=== PATIENT | male | born 1930 | race Caucasian/White ===

== ENCOUNTER → 2016-10-29 | Outpatient (CLI) | payer OTHER ==
[~2016-10-29] MED LIST: ACET-1311 PO; ACET650S10 RE; ASPEC81 PO; BENZ10LO2 PO; BISA10SU7 RE; BUDE0.5S NEB; CHOL100010 PO; CZR50 PO; ESCI1TAB10 PO; IMDSR60 PO; LOPE2TAB PO; LSX20 PO; MAGNSUS5 PO; PANT40TA PO; POLY335019 PO; POTA10CA28 PO; PSYLPOW6 PO; SILO8CAP PO; SOLI10TA2 PO; ULT50X PO; WARF4TAB PO
[2016-10-29 09:20] LABS: INR 2.9 (0.9-1.1); PROTHROMBIN TIME (PATIENT) 32.1 SECONDS (9.0-12.0)
== END | disposition home or self-care (01) ==
LOC: C.LABFOXAE 08:48
PROVIDERS: ATTEND Internal Medicine
DX: I48.91 Unspecified atrial fibrillation (principal)

== ENCOUNTER → 2016-11-19 | Outpatient (CLI) | payer OTHER ==
[2016-11-19 08:58] LABS: INR 2.3 (0.9-1.1); PROTHROMBIN TIME (PATIENT) 25.7 SECONDS (9.0-12.0)
== END | disposition home or self-care (01) ==
LOC: C.LABFOXAE 08:23
PROVIDERS: ATTEND Internal Medicine
DX: I48.91 Unspecified atrial fibrillation (principal)

== ENCOUNTER → 2016-12-10 | Outpatient (CLI) | payer OTHER, BC ==
[2016-12-10 08:57] LABS: INR 2.9 (0.9-1.1); PROTHROMBIN TIME (PATIENT) 32.8 SECONDS (9.0-12.0)
== END | disposition home or self-care (01) ==
LOC: C.LABFOXAE 08:26
PROVIDERS: ATTEND Internal Medicine
DX: I48.91 Unspecified atrial fibrillation (principal)

== ENCOUNTER → 2016-12-24 | Outpatient (CLI) | payer BC, OTHER ==
[2016-12-24 09:31] LABS: INR 2.6 (0.9-1.1); PROTHROMBIN TIME (PATIENT) 28.8 SECONDS (9.0-12.0)
== END | disposition home or self-care (01) ==
LOC: C.LABFOXAE 09:04
PROVIDERS: ATTEND Nurse Practitioner Family
DX: I48.91 Unspecified atrial fibrillation (principal)

== ENCOUNTER → 2016-12-31 | Outpatient (CLI) | payer BC, OTHER ==
[2016-12-31 08:21] LABS: HEMATOCRIT 32.2 % (42-52); MEAN CELL VOLUME 85.6 fL (80-100); MEAN CORPUSCULAR HEMOGLOBIN 27.1 pg (25-34); MEAN CORPUSCULAR HGB CONC 31.7 g/dl (32-36); MEAN PLATELET VOLUME 9.8 fL (7.4-10.4); PLATELET COUNT 175 K/uL (130-400); RED BLOOD COUNT 3.76 M/uL (4.7-6.1)
[2016-12-31 08:28] LABS: BLOOD UREA NITROGEN 16 mg/dl (7-18); BUN/CREATININE RATIO 16.3 (10-20); CALCIUM 9.1 mg/dl (8.5-10.1); CARBON DIOXIDE 30 mmol/L (21-32); CHLORIDE 96 mmol/L (98-107); GLUCOSE 81 mg/dl (70-99); POTASSIUM 4.6 mmol/L (3.5-5.1); SODIUM 132 mmol/L (136-145)
== END | disposition home or self-care (01) ==
LOC: C.LABFOXAE 07:50
PROVIDERS: ATTEND Nurse Practitioner Family
DX: I50.9 Heart failure, unspecified (principal)

== ENCOUNTER → 2017-01-06 | Outpatient (CLI) | payer BC ==
[2017-01-06 09:32] LABS: INR 2.5 (0.9-1.1)
== END | disposition home or self-care (01) ==
LOC: C.LABFOXAE 08:59
PROVIDERS: ATTEND Internal Medicine
DX: I48.91 Unspecified atrial fibrillation (principal)

== ENCOUNTER → 2017-01-27 | Outpatient (CLI) | payer OTHER ==
[2017-01-27 09:38] LABS: PROTHROMBIN TIME (PATIENT) 21.9 SECONDS (9.0-12.0)
== END | disposition home or self-care (01) ==
LOC: C.LABFOXAC 09:11
PROVIDERS: ATTEND Internal Medicine
DX: I48.91 Unspecified atrial fibrillation (principal)

== ENCOUNTER → 2017-02-10 | Outpatient (CLI) | payer OTHER ==
[2017-02-10 10:15] LABS: INR 1.8 (0.9-1.1); PROTHROMBIN TIME (PATIENT) 19.2 SECONDS (9.0-12.0)
== END | disposition home or self-care (01) ==
LOC: C.LABFOXAE 08:51
PROVIDERS: ATTEND Internal Medicine
DX: I48.91 Unspecified atrial fibrillation (principal)

== ENCOUNTER → 2017-02-17 | Outpatient (CLI) | payer OTHER ==
[2017-02-17 08:24] LABS: HEMATOCRIT 35.6 % (42-52); MEAN CELL VOLUME 85.4 fL (80-100); MEAN CORPUSCULAR HEMOGLOBIN 26.6 pg (25-34); MEAN CORPUSCULAR HGB CONC 31.2 g/dl (32-36); MEAN PLATELET VOLUME 9.7 fL (7.4-10.4); PLATELET COUNT 247 K/uL (130-400); RED BLOOD COUNT 4.17 M/uL (4.7-6.1); WHITE BLOOD COUNT 6.57 K/uL (4.8-10.8)
[2017-02-17 08:31] LABS: INR 2.5 (0.9-1.1); PROTHROMBIN TIME (PATIENT) 28.2 SECONDS (9.0-12.0)
[2017-02-17 09:11] LABS: BLOOD UREA NITROGEN 20 mg/dl (7-18); CALCIUM 8.9 mg/dl (8.5-10.1); CARBON DIOXIDE 34 mmol/L (21-32); CHLORIDE 92 mmol/L (98-107); GLUCOSE 82 mg/dl (70-99); POTASSIUM 4.7 mmol/L (3.5-5.1); SODIUM 129 mmol/L (136-145)
== END | disposition home or self-care (01) ==
LOC: C.LABFOXAE 07:59
PROVIDERS: ATTEND Nurse Practitioner Family
DX: I48.91 Unspecified atrial fibrillation (principal)

== ENCOUNTER → 2017-03-03 | Outpatient (CLI) | payer OTHER ==
[2017-03-03 08:52] LABS: INR 2.7 (0.9-1.1)
== END | disposition home or self-care (01) ==
LOC: C.LABFOXAE 08:16
PROVIDERS: ATTEND Internal Medicine
DX: I48.91 Unspecified atrial fibrillation (principal)

== ENCOUNTER → 2017-03-31 | Outpatient (CLI) | payer OTHER ==
[2017-03-31 10:07] LABS: HEMATOCRIT 32.7 % (42-52); MEAN CELL VOLUME 83.4 fL (80-100); MEAN CORPUSCULAR HEMOGLOBIN 27.3 pg (25-34); MEAN CORPUSCULAR HGB CONC 32.7 g/dl (32-36); MEAN PLATELET VOLUME 9.3 fL (7.4-10.4); PLATELET COUNT 178 K/uL (130-400); RED BLOOD COUNT 3.92 M/uL (4.7-6.1); WHITE BLOOD COUNT 4.93 K/uL (4.8-10.8)
[2017-03-31 10:16] LABS: BLOOD UREA NITROGEN 28 mg/dl (7-18); BUN/CREATININE RATIO 18.9 (10-20); CARBON DIOXIDE 27 mmol/L (21-32); CHLORIDE 87 mmol/L (98-107); GLUCOSE 82 mg/dl (70-99); SODIUM 123 mmol/L (136-145)
[2017-03-31 10:27] LABS: CALCIUM 8.7 mg/dl (8.5-10.1)
[2017-03-31 10:34] LABS: PROTHROMBIN TIME (PATIENT) 62.9 SECONDS (9.0-12.0)
[2017-03-31 10:43] LABS: INR 5.5 (0.9-1.1)
== END ==
LOC: C.LABFOXAE 09:00
PROVIDERS: ATTEND Internal Medicine
DX: I48.91 Unspecified atrial fibrillation (principal); I50.9 Heart failure, unspecified

== ENCOUNTER → 2017-04-02 | Outpatient (CLI) | payer OTHER ==
[2017-04-02 10:35] LABS: INR 3.5 (0.9-1.1); PROTHROMBIN TIME (PATIENT) 38.9 SECONDS (9.0-12.0)
== END | disposition home or self-care (01) ==
LOC: C.LABFOXAE 08:58
PROVIDERS: ATTEND Internal Medicine
DX: I48.91 Unspecified atrial fibrillation (principal)

== ENCOUNTER → 2017-04-07 | Outpatient (CLI) | payer OTHER ==
[2017-04-07 10:00] LABS: INR 1.7 (0.9-1.1); PROTHROMBIN TIME (PATIENT) 19.1 SECONDS (9.0-12.0)
== END ==
LOC: C.LABFOXAE 09:04
PROVIDERS: ATTEND Internal Medicine
DX: I48.91 Unspecified atrial fibrillation (principal)

== ENCOUNTER → 2017-04-14 | Outpatient (CLI) | payer OTHER ==
[2017-04-14 10:54] LABS: INR 2.2 (0.9-1.1); PROTHROMBIN TIME (PATIENT) 24.8 SECONDS (9.0-12.0)
== END | disposition home or self-care (01) ==
LOC: C.LABFOXAE 09:28
PROVIDERS: ATTEND Internal Medicine
DX: I48.91 Unspecified atrial fibrillation (principal)

== ENCOUNTER → 2017-04-21 | Outpatient (CLI) | payer OTHER ==
[2017-04-21 09:32] LABS: PROTHROMBIN TIME (PATIENT) 22.1 SECONDS (9.0-12.0)
== END | disposition home or self-care (01) ==
LOC: C.LABFOXAE 05:23
PROVIDERS: ATTEND Internal Medicine
DX: I48.91 Unspecified atrial fibrillation (principal)

== ENCOUNTER → 2017-05-05 | Outpatient (CLI) | payer OTHER ==
[2017-05-05 09:05] LABS: INR 1.5 (0.9-1.1)
== END ==
LOC: C.LABFOXAE 08:23
PROVIDERS: ATTEND Nurse Practitioner Family
DX: I48.91 Unspecified atrial fibrillation (principal)

== ENCOUNTER → 2017-05-06 | Outpatient (CLI) | payer OTHER ==
[2017-05-06 10:22] LABS: BLOOD UREA NITROGEN 21 mg/dl (7-18); BUN/CREATININE RATIO 19.5 (10-20); CALCIUM 9.5 mg/dl (8.5-10.1); CARBON DIOXIDE 29 mmol/L (21-32); CHLORIDE 90 mmol/L (98-107); GLUCOSE 75 mg/dl (70-99); POTASSIUM 5.1 mmol/L (3.5-5.1); SODIUM 127 mmol/L (136-145)
== END | disposition home or self-care (01) ==
LOC: C.LABFOXAE 09:32
PROVIDERS: ATTEND Internal Medicine
DX: Z51.81 Encounter for therapeutic drug level monitoring (principal); Z79.01 Long term (current) use of anticoagulants

== ENCOUNTER → 2017-05-12 | Outpatient (CLI) | payer OTHER, BC ==
[2017-05-12 09:52] LABS: INR 1.8 (0.9-1.1); PROTHROMBIN TIME (PATIENT) 19.3 SECONDS (9.0-12.0)
== END ==
LOC: C.LABFOXAE 08:54
PROVIDERS: ATTEND Internal Medicine Hospice and Palliative Medicine
DX: I48.91 Unspecified atrial fibrillation (principal)

== ENCOUNTER → 2017-05-13 | Outpatient (CLI) | payer OTHER, BC ==
[2017-05-13 09:28] LABS: BLOOD UREA NITROGEN 19 mg/dl (7-18); BUN/CREATININE RATIO 16.9 (10-20); CALCIUM 9.1 mg/dl (8.5-10.1); CARBON DIOXIDE 28 mmol/L (21-32); CHLORIDE 91 mmol/L (98-107); GLUCOSE 99 mg/dl (70-99); POTASSIUM 4.8 mmol/L (3.5-5.1); SODIUM 126 mmol/L (136-145)
== END | disposition home or self-care (01) ==
LOC: C.LABFOXAE 08:43
PROVIDERS: ATTEND Internal Medicine Hospice and Palliative Medicine
DX: E87.1 Hypo-osmolality and hyponatremia (principal)

== ENCOUNTER → 2017-05-14 | Outpatient (CLI) | payer OTHER, BC ==
--- NOTE | 2017-05-14 18:10 | ECHOCARDIOGRAM REPORT ---
*NOTICE TO RECEIVING DEMOCRAT AGENCY This information is strictly Confidential and protected under [place] law. [place] law prohibits you from making any further disclosure of this information unless further disclosure is expressly permitted by the written consent of the person to whom it pertains or is authorized by law. A general authorization for the release of medical or other information is not sufficient for this purpose. Hospital accepts no responsibility if the information is made available to any other person, INCLUDING THE PATIENT. Interpretation Summary * Name: OK HAN Study Date: 05/14/2017 02:41 PM * Patient Location: [facility] HR: 76 * : 1930 (M/d/yyyy) Gender: Male Height: 66 in * Age: 86 yrs Ethnicity: CA Weight: 141 lb * Ordering Physician: Alex Anguiano * Referring Physician: Alex Anguiano * Performed By: Aleta Hills RCS * * Reason For Study: CHF * BSA: 1.7 m2 * -- Conclusions -- * There is mild concentric left ventricular hypertrophy. * Left ventricular systolic function is normal. * The right ventricle is mildly dilated. * The right ventricular systolic function is moderately reduced. * The left atrium is severely dilated. * The right atrium is moderately dilated. * Mild aortic regurgitation. * Mild valvular aortic stenosis. * There is mild mitral regurgitation. * There is mild tricuspid regurgitation. * Right ventricular systolic pressure is elevated at 50-60mmHg. * Compared to a study from 08/2016, the LV systolic function is improved. Aortic stenosis is slightly worse. * Rhythm is now atrial fibrillation Procedure Details * A complete two-dimensional transthoracic echocardiogram was performed (2D, M-mode, Doppler and color flow Doppler). Left Ventricle * The left ventricle is normal in size. * There is mild concentric left ventricular hypertrophy. * Left ventricular systolic function is normal. Right Ventricle * The right ventricle is mildly dilated. * The right ventricular systolic function is moderately reduced. Atria * The left atrium is severely dilated. * The right atrium is moderately dilated. Mitral Valve * The mitral valve is grossly normal. * There is mild mitral regurgitation. Tricuspid Valve * The tricuspid valve is not well visualized, but is grossly normal. * There is mild tricuspid regurgitation. * Right ventricular systolic pressure is elevated at 50-60mmHg. Aortic Valve * The aortic valve is trileaflet. * Mild valvular aortic stenosis. * Mild aortic regurgitation. Great Vessels * The aortic root is normal size. Pericardium/Pleural * There is no pericardial effusion. MMode 2D Measurements and Calculations IVSd 1.3 cm IVSs 1.5 cm LVIDd 4.0 cm LVIDs 3.1 cm LVPWd 1.2 cm LVPWs 1.4 cm IVS/LVPW 1.0 FS 22.5 % EDV(Teich) 69.0 ml ESV(Teich) 37.3 ml EF(Teich) 45.9 % EDV(cubed) 62.8 ml ESV(cubed) 29.2 ml EF(cubed) 53.5 % % IVS thick 13.6 % % LVPW thick 8.7 % LV mass(C)d 178.7 grams LV mass(C)dI 103.6 grams/m\S\2 LV mass(C)s 147.7 grams LV mass(C)sI 85.7 grams/m\S\2 SV(Teich) 31.7 ml SI(Teich) 18.4 ml/m\S\2 SV(cubed) 33.6 ml SI(cubed) 19.5 ml/m\S\2 Ao root diam 2.9 cm Ao root area 6.7 cm\S\2 ACS 1.4 cm LA dimension 5.3 cm LA/Ao 1.8 LVOT diam 2.0 cm LVOT area 3.1 cm\S\2 LVAd ap4 26.8 cm\S\2 LVLd ap4 7.8 cm EDV(MOD-sp4) 75.8 ml EDV(sp4-el) 77.7 ml LVAs ap4 14.8 cm\S\2 LVLs ap4 6.6 cm ESV(MOD-sp4) 27.9 ml ESV(sp4-el) 28.0 ml EF(MOD-sp4) 63.2 % EF(sp4-el) 63.9 % SV(MOD-sp4) 48.0 ml SI(MOD-sp4) 27.8 ml/m\S\2 SV(sp4-el) 49.6 ml SI(sp4-el) 28.8 ml/m\S\2 Doppler Measurements and Calculations MV E max fausto 87.2 cm/sec MV P1/2t max fausto 105.9 cm/sec MV P1/2t 89.5 msec MVA(P1/2t) 2.5 cm\S\2 MV dec slope 346.7 cm/sec\S\2 MV dec time 0.24 sec Ao V2 max 251.9 cm/sec Ao max PG 25.4 mmHg Ao max PG (full) 22.8 mmHg SUZIE(V,A) 0.99 cm\S\2 SUZIE(V,D) 0.99 cm\S\2 AI max fausto 375.5 cm/sec AI max PG 56.4 mmHg AI dec slope 155.2 cm/sec\S\2 AI P1/2t 708.8 msec LV V1 max PG 2.6 mmHg LV V1 max 80.7 cm/sec PA V2 max 135.4 cm/sec PA max PG 7.3 mmHg PI max fausto 190.7 cm/sec PI max PG 14.5 mmHg PI dec slope 72.1 cm/sec\S\2 PI P1/2t 774.1 msec TR max fausto 337.2 cm/sec
== END | disposition home or self-care (01) ==
LOC: C.CPL 14:11
PROVIDERS: ATTEND Internal Medicine
DX: I50.9 Heart failure, unspecified (principal); I36.1 Nonrheumatic tricuspid (valve) insufficiency; I34.0 Nonrheumatic mitral (valve) insufficiency

== ENCOUNTER → 2017-05-19 | Outpatient (CLI) | payer BC ==
[2017-05-19 08:31] LABS: HEMATOCRIT 31.6 % (42-52); MEAN CELL VOLUME 84.9 fL (80-100); MEAN CORPUSCULAR HGB CONC 34.2 g/dl (32-36); MEAN PLATELET VOLUME 9.4 fL (7.4-10.4); PLATELET COUNT 183 K/uL (130-400); RED BLOOD COUNT 3.72 M/uL (4.7-6.1); WHITE BLOOD COUNT 6.83 K/uL (4.8-10.8)
[2017-05-19 08:40] LABS: ALT/SGPT 18 U/L (12-78); AMYLASE 75 U/L (25-115); BLOOD UREA NITROGEN 20 mg/dl (7-18); CALCIUM 9.1 mg/dl (8.5-10.1); CARBON DIOXIDE 27 mmol/L (21-32); CHLORIDE 87 mmol/L (98-107); GLUCOSE 111 mg/dl (70-99); SODIUM 122 mmol/L (136-145)
[2017-05-19 08:43] LABS: ALB/GLOB RATIO 1.1 (0.9-2); ALKALINE PHOSPHATASE 67 U/L (45-117); AST/SGOT 15 U/L (15-37)
[2017-05-19 08:46] LABS: PROTHROMBIN TIME (PATIENT) 47.3 SECONDS (9.0-12.0)
[2017-05-19 08:48] LABS: INR 4.2 (0.9-1.1)
== END ==
LOC: C.LABFOXAE 08:11
PROVIDERS: ATTEND Internal Medicine Hospice and Palliative Medicine
DX: E87.1 Hypo-osmolality and hyponatremia (principal)

== ENCOUNTER → 2017-05-21 | Outpatient (CLI) | payer BC ==
[2017-05-21 08:39] LABS: BLOOD UREA NITROGEN 24 mg/dl (7-18); BUN/CREATININE RATIO 19.8 (10-20); CALCIUM 8.6 mg/dl (8.5-10.1); CARBON DIOXIDE 28 mmol/L (21-32); CHLORIDE 96 mmol/L (98-107); GLUCOSE 101 mg/dl (70-99); POTASSIUM 4.6 mmol/L (3.5-5.1); SODIUM 131 mmol/L (136-145)
== END | disposition home or self-care (01) ==
LOC: C.LABSPEC 07:34
PROVIDERS: ATTEND Internal Medicine
DX: E87.1 Hypo-osmolality and hyponatremia (principal)

== ENCOUNTER → 2017-05-24 | Outpatient (CLI) | payer BC ==
[2017-05-24 08:35] LABS: PROTHROMBIN TIME (PATIENT) 10.8 SECONDS (9.0-12.0)
== END | disposition home or self-care (01) ==
LOC: C.LABFOXAE 08:03
PROVIDERS: ATTEND Nurse Practitioner Family
DX: I48.91 Unspecified atrial fibrillation (principal)

== ENCOUNTER → 2017-05-27 | Outpatient (CLI) | payer BC ==
[2017-05-27 09:41] LABS: BLOOD UREA NITROGEN 18 mg/dl (7-18); BUN/CREATININE RATIO 16.5 (10-20); CALCIUM 8.9 mg/dl (8.5-10.1); CARBON DIOXIDE 30 mmol/L (21-32); CHLORIDE 93 mmol/L (98-107); GLUCOSE 80 mg/dl (70-99); SODIUM 129 mmol/L (136-145)
[2017-05-27 09:50] LABS: INR 1.1 (0.9-1.1); PROTHROMBIN TIME (PATIENT) 11.9 SECONDS (9.0-12.0)
== END ==
LOC: C.LABFOXAE 09:02
PROVIDERS: ATTEND Internal Medicine
DX: I48.91 Unspecified atrial fibrillation (principal); I50.32 Chronic diastolic (congestive) heart failure

== ENCOUNTER → 2017-05-31 | Outpatient (CLI) | payer BC ==
[2017-05-31 08:50] LABS: BLOOD UREA NITROGEN 29 mg/dl (7-18); BUN/CREATININE RATIO 23.9 (10-20); CARBON DIOXIDE 32 mmol/L (21-32); CHLORIDE 92 mmol/L (98-107); GLUCOSE 112 mg/dl (70-99); POTASSIUM 5.3 mmol/L (3.5-5.1); SODIUM 127 mmol/L (136-145)
== END | disposition home or self-care (01) ==
LOC: C.LABFOXAE 08:07
PROVIDERS: ATTEND Internal Medicine
DX: I50.32 Chronic diastolic (congestive) heart failure (principal); E87.1 Hypo-osmolality and hyponatremia

== ENCOUNTER → 2017-06-03 | Outpatient (CLI) | payer BC ==
[2017-06-03 09:51] LABS: PROTHROMBIN TIME (PATIENT) 22.1 SECONDS (9.0-12.0)
== END | disposition home or self-care (01) ==
LOC: C.LABFOXAE 09:04
PROVIDERS: ATTEND Internal Medicine
DX: I48.0 Paroxysmal atrial fibrillation (principal)

== ENCOUNTER → 2017-06-09 | Outpatient (CLI) | payer BC ==
[2017-06-09 11:02] LABS: BLOOD UREA NITROGEN 23 mg/dl (7-18); GLUCOSE 67 mg/dl (70-99)
[2017-06-09 11:03] LABS: BUN/CREATININE RATIO 18.9 (10-20); CARBON DIOXIDE 29 mmol/L (21-32); CHLORIDE 93 mmol/L (98-107); SODIUM 127 mmol/L (136-145)
== END | disposition home or self-care (01) ==
LOC: C.LABFOXAE 10:15
PROVIDERS: ATTEND Nurse Practitioner Family
DX: E87.1 Hypo-osmolality and hyponatremia (principal)

== ENCOUNTER → 2017-06-17 | Outpatient (CLI) | payer BC ==
[2017-06-17 08:44] LABS: PROTHROMBIN TIME (PATIENT) 22.5 SECONDS (9.0-12.0)
== END | disposition home or self-care (01) ==
LOC: C.LABFOXAE 08:15
PROVIDERS: ATTEND Internal Medicine
DX: I48.91 Unspecified atrial fibrillation (principal)

== ENCOUNTER → 2017-06-29 | Outpatient (CLI) | payer BC ==
[2017-06-29 08:22] LABS: BLOOD UREA NITROGEN 30 mg/dl (7-18); BUN/CREATININE RATIO 20.3 (10-20); CALCIUM 9.2 mg/dl (8.5-10.1); CARBON DIOXIDE 29 mmol/L (21-32); CHLORIDE 89 mmol/L (98-107); GLUCOSE 82 mg/dl (70-99); POTASSIUM 4.8 mmol/L (3.5-5.1); SODIUM 125 mmol/L (136-145); URIC ACID 6.1 mg/dl (2.6-7.2)
--- NOTE | 2017-07-07 09:54 | CODING QUERY NO DIAGNOSIS ---
: 1930 TREATMENT RENDERED WITHOUT A DIAGNOSIS To promote full compliance with coding requirements relating to patient care, physician participation is requested in all cases of master esthetician uncertainty. Please assist us with providing a diagnosis/symptom for the test(s) below: Please provide the original, signed physician order for the following tests that were rendered on 06/29/17: PARTIAL RENAL PROFILE URIC ACID ERYTHROCYTE SEDIMENTATION RATE Thank you [employer] Information Management Once completed, please kindly fax back to [phone] For questions please call [phone]
== END | disposition home or self-care (01) ==
LOC: C.LABFOXAE 07:52
PROVIDERS: ATTEND Internal Medicine
DX: M79.675 Pain in left toe(s) (principal); R06.02 Shortness of breath; E87.1 Hypo-osmolality and hyponatremia

== ENCOUNTER → 2017-07-01 | Outpatient (CLI) | payer BC ==
[2017-07-01 09:02] LABS: HEMATOCRIT 31.3 % (42-52); MEAN CELL VOLUME 90.2 fL (80-100); MEAN CORPUSCULAR HEMOGLOBIN 30.5 pg (25-34); MEAN CORPUSCULAR HGB CONC 33.9 g/dl (32-36); PLATELET COUNT 173 K/uL (130-400); RED BLOOD COUNT 3.47 M/uL (4.7-6.1); WHITE BLOOD COUNT 5.87 K/uL (4.8-10.8)
== END | disposition home or self-care (01) ==
LOC: C.LABFOXAN 08:29
PROVIDERS: ATTEND Internal Medicine
DX: I50.9 Heart failure, unspecified (principal)

== ENCOUNTER → 2017-07-06 | Outpatient (CLI) | payer BC ==
[2017-07-06 10:04] LABS: BLOOD UREA NITROGEN 35 mg/dl (7-18); BUN/CREATININE RATIO 25.3 (10-20); CARBON DIOXIDE 29 mmol/L (21-32); CHLORIDE 93 mmol/L (98-107); GLUCOSE 100 mg/dl (70-99); SODIUM 127 mmol/L (136-145)
== END ==
LOC: C.LABFOXAE 09:23
PROVIDERS: ATTEND Internal Medicine Hospice and Palliative Medicine
DX: I50.32 Chronic diastolic (congestive) heart failure (principal); E87.1 Hypo-osmolality and hyponatremia

== ENCOUNTER → 2017-07-15 | Outpatient (CLI) | payer BC ==
[2017-07-15 08:38] LABS: PROTHROMBIN TIME (PATIENT) 22.4 SECONDS (9.0-12.0)
== END | disposition home or self-care (01) ==
LOC: C.LABFOXAE 07:52
PROVIDERS: ATTEND Internal Medicine
DX: I48.91 Unspecified atrial fibrillation (principal)

== ENCOUNTER → 2017-08-12 | Outpatient (CLI) | payer BC ==
[2017-08-12 08:44] LABS: INR 1.6 (0.9-1.1); PROTHROMBIN TIME (PATIENT) 17.7 SECONDS (9.0-12.0)
== END | disposition home or self-care (01) ==
LOC: C.LABFOXAE 08:05
PROVIDERS: ATTEND Internal Medicine
DX: I48.91 Unspecified atrial fibrillation (principal)

== ENCOUNTER → 2017-08-26 | Outpatient (CLI) | payer BC | END | disposition home or self-care (01) | LOC: C.LABFOXAE 08:36 | PROVIDERS: ATTEND Internal Medicine | DX: I48.91 Unspecified atrial fibrillation (principal) ==

== ENCOUNTER → 2017-08-27 | Outpatient (CLI) | payer BC ==
[2017-08-27 09:10] LABS: INR 3.1 (0.9-1.1); PROTHROMBIN TIME (PATIENT) 34.3 SECONDS (9.0-12.0)
== END | disposition home or self-care (01) ==
LOC: C.LABFOXAE 08:43
PROVIDERS: ATTEND Internal Medicine
DX: I48.91 Unspecified atrial fibrillation (principal)

== ENCOUNTER → 2017-09-08 | Outpatient (CLI) | payer BC ==
[2017-09-08 09:40] LABS: INR 3.4 (0.9-1.1); PROTHROMBIN TIME (PATIENT) 38.8 SECONDS (9.0-12.0)
== END | disposition home or self-care (01) ==
LOC: C.LABFOXAE 08:56
PROVIDERS: ATTEND Internal Medicine Hospice and Palliative Medicine
DX: I48.91 Unspecified atrial fibrillation (principal)

== ENCOUNTER → 2017-09-22 | Outpatient (CLI) | payer BC ==
[2017-09-22 08:50] LABS: INR 1.4 (0.9-1.1); PROTHROMBIN TIME (PATIENT) 14.7 SECONDS (9.0-12.0)
== END ==
LOC: C.LABFOXAE 07:44
PROVIDERS: ATTEND Internal Medicine
DX: I48.91 Unspecified atrial fibrillation (principal)

== ENCOUNTER → 2017-09-24 | Outpatient (CLI) | payer BC ==
[2017-09-24 09:50] LABS: INR 1.9 (0.9-1.1); PROTHROMBIN TIME (PATIENT) 20.1 SECONDS (9.0-12.0)
== END | disposition home or self-care (01) ==
LOC: C.LABFOXAE 09:16
PROVIDERS: ATTEND Nurse Practitioner
DX: I48.91 Unspecified atrial fibrillation (principal)

== ENCOUNTER → 2017-09-27 | Outpatient (CLI) | payer BC ==
[2017-09-27 09:39] LABS: INR 2.7 (0.9-1.1); PROTHROMBIN TIME (PATIENT) 28.1 SECONDS (9.0-12.0)
== END | disposition home or self-care (01) ==
LOC: C.LABFOXAE 08:35
PROVIDERS: ATTEND Nurse Practitioner Family
DX: I48.91 Unspecified atrial fibrillation (principal)

== ENCOUNTER → 2017-10-08 | Outpatient (CLI) | payer BC ==
[2017-10-08 08:58] LABS: HEMATOCRIT 26.2 % (42-52); MEAN CELL VOLUME 91.6 fL (80-100); MEAN CORPUSCULAR HEMOGLOBIN 30.8 pg (25-34); MEAN CORPUSCULAR HGB CONC 33.6 g/dl (32-36); MEAN PLATELET VOLUME 9.7 fL (7.4-10.4); PLATELET COUNT 172 K/uL (130-400); RED BLOOD COUNT 2.86 M/uL (4.7-6.1); WHITE BLOOD COUNT 5.18 K/uL (4.8-10.8)
[2017-10-08 09:04] LABS: BLOOD UREA NITROGEN 29 mg/dl (7-18); BUN/CREATININE RATIO 20.4 (10-20); CALCIUM 8.6 mg/dl (8.5-10.1); CARBON DIOXIDE 27 mmol/L (21-32); CHLORIDE 94 mmol/L (98-107); CREATININE 1.44 mg/dl (0.60-1.40); GLUCOSE 110 mg/dl (70-99); POTASSIUM 5.1 mmol/L (3.5-5.1); SODIUM 128 mmol/L (136-145)
[2017-10-08 09:05] LABS: INR 3.3 (0.9-1.1); PROTHROMBIN TIME (PATIENT) 34.2 SECONDS (9.0-12.0)
== END | disposition home or self-care (01) ==
LOC: C.LABFOXAE 08:27
PROVIDERS: ATTEND Internal Medicine Hospice and Palliative Medicine
DX: I48.91 Unspecified atrial fibrillation (principal)

== ENCOUNTER → 2017-10-12 | Outpatient (CLI) | payer BC ==
[2017-10-12 08:57] LABS: INR 1.5 (0.9-1.1); PROTHROMBIN TIME (PATIENT) 15.9 SECONDS (9.0-12.0)
== END ==
LOC: C.LABFOXAE 08:19
PROVIDERS: ATTEND Internal Medicine
DX: I48.91 Unspecified atrial fibrillation (principal)

== ENCOUNTER → 2017-10-15 | Outpatient (CLI) | payer OTHER, BC ==
[~2017-10-15] MED LIST changes: -ASPEC81 PO; +ASPI-320 PO
[2017-10-15 08:29] LABS: HEMATOCRIT 30.8 % (42-52); HEMOGLOBIN 9.9 g/dL (14.0-18.0); MEAN CELL VOLUME 94.5 fL (80-100); MEAN CORPUSCULAR HEMOGLOBIN 30.4 pg (25-34); MEAN CORPUSCULAR HGB CONC 32.1 g/dl (32-36); MEAN PLATELET VOLUME 9.8 fL (7.4-10.4); PLATELET COUNT 182 K/uL (130-400); RED CELL DISTRIBUTION WIDTH CV 13.5 % (11.5-14.5); RED CELL DISTRIBUTION WIDTH SD 46.8 fL (36.4-46.3); WHITE BLOOD COUNT 6.21 K/uL (4.8-10.8)
== END ==
LOC: C.LABFOXAE 08:09
PROVIDERS: ATTEND Internal Medicine Hospice and Palliative Medicine
DX: D64.9 Anemia, unspecified (principal)

== ENCOUNTER → 2017-10-26 | Outpatient (CLI) | payer BC ==
[~2017-10-26] MED LIST changes: +ASPEC81 PO; -ASPI-320 PO
[2017-10-26 10:12] LABS: INR 1.9 (0.9-1.1)
== END | disposition home or self-care (01) ==
LOC: C.LABFOXAE 09:16
PROVIDERS: ATTEND Internal Medicine Hospice and Palliative Medicine
DX: I48.91 Unspecified atrial fibrillation (principal)

== ENCOUNTER → 2017-11-05 | Outpatient (CLI) | payer BC ==
[2017-11-05 08:50] LABS: HEMATOCRIT 29.2 % (42-52); HEMOGLOBIN 9.8 g/dL (14.0-18.0); MEAN CELL VOLUME 92.7 fL (80-100); MEAN CORPUSCULAR HEMOGLOBIN 31.1 pg (25-34); MEAN CORPUSCULAR HGB CONC 33.6 g/dl (32-36); MEAN PLATELET VOLUME 9.8 fL (7.4-10.4); PLATELET COUNT 198 K/uL (130-400); RED BLOOD COUNT 3.15 M/uL (4.7-6.1); RED CELL DISTRIBUTION WIDTH CV 13.4 % (11.5-14.5); RED CELL DISTRIBUTION WIDTH SD 45.1 fL (36.4-46.3)
== END ==
LOC: C.LABFOXAE 08:13
DX: I48.91 Unspecified atrial fibrillation (principal)

== ENCOUNTER → 2017-11-16 | Outpatient (CLI) | payer BC ==
[2017-11-16 10:53] LABS: INR 2.1 (0.9-1.1)
== END | disposition home or self-care (01) ==
LOC: C.LABFOXAE 09:35
PROVIDERS: ATTEND Internal Medicine
DX: I48.91 Unspecified atrial fibrillation (principal)

== ENCOUNTER → 2017-12-07 | Outpatient (CLI) | payer BC ==
[2017-12-07 09:06] LABS: INR 1.7 (0.9-1.1)
== END | disposition home or self-care (01) ==
LOC: C.LABFOXAE 08:42
PROVIDERS: ATTEND Internal Medicine
DX: I48.91 Unspecified atrial fibrillation (principal)

== ENCOUNTER → 2017-12-21 | Outpatient (CLI) | payer BC ==
[2017-12-21 08:58] LABS: INR 2.4 (0.9-1.1)
== END | disposition home or self-care (01) ==
LOC: C.LABFOXAE 08:29
PROVIDERS: ATTEND Internal Medicine Hospice and Palliative Medicine
DX: I48.91 Unspecified atrial fibrillation (principal)

== ENCOUNTER → 2018-01-04 | Outpatient (CLI) | payer BC ==
[2018-01-04 08:07] LABS: HEMATOCRIT 30.1 % (42-52); HEMOGLOBIN 10.1 g/dL (14.0-18.0); MEAN CELL VOLUME 89.1 fL (80-100); MEAN CORPUSCULAR HEMOGLOBIN 29.9 pg (25-34); MEAN CORPUSCULAR HGB CONC 33.6 g/dl (32-36); MEAN PLATELET VOLUME 10.3 fL (7.4-10.4); PLATELET COUNT 173 K/uL (130-400); RED CELL DISTRIBUTION WIDTH CV 13.2 % (11.5-14.5); RED CELL DISTRIBUTION WIDTH SD 43.2 fL (36.4-46.3); WHITE BLOOD COUNT 6.97 K/uL (4.8-10.8)
[2018-01-04 08:17] LABS: BLOOD UREA NITROGEN 54 mg/dl (7-18); CALCIUM 8.7 mg/dl (8.5-10.1); CARBON DIOXIDE 24 mmol/L (21-32); CREATININE 2.45 mg/dl (0.60-1.40); GLUCOSE 110 mg/dl (70-99); POTASSIUM 5.1 mmol/L (3.5-5.1); SODIUM 124 mmol/L (136-145)
[2018-01-04 08:26] LABS: INR 4.8 (0.9-1.1)
--- NOTE | 2018-01-06 11:15 | CODING QUERY NO DIAGNOSIS ---
TREATMENT RENDERED WITHOUT A DIAGNOSIS To promote full compliance with coding requirements relating to patient care, physician participation is requested in all cases of forging press lever tender uncertainty. Please assist us with providing a diagnosis/symptom for the test(s) below: A diagnosis/symptom was not documented on your Order. A valid diagnosis/symptom is required to bill all insurances. Please remember that we are unable to code a diagnosis of rule out, probable, possible, questionable, or suspected. Tests that require a diagnosis: DOS: 01/04/18 * PT/INR DIAGNOSIS: Provider Signature: Date: Thank you Malaika Reyes [employer] Information [employer] Once completed, please kindly fax back to [phone] For questions please call [phone]
== END ==
LOC: C.LABFOXAE 07:38
PROVIDERS: ATTEND Nurse Practitioner Family
DX: I50.9 Heart failure, unspecified (principal); Z79.01 Long term (current) use of anticoagulants

== ENCOUNTER → 2018-01-06 | Outpatient (CLI) | payer BC ==
[2018-01-06 09:51] LABS: INR 2.5 (0.9-1.1)
[2018-01-06 10:01] LABS: BLOOD UREA NITROGEN 46 mg/dl (7-18); CALCIUM 8.5 mg/dl (8.5-10.1); CARBON DIOXIDE 25 mmol/L (21-32); CREATININE 1.89 mg/dl (0.60-1.40); GLUCOSE 107 mg/dl (70-99); POTASSIUM 4.2 mmol/L (3.5-5.1); SODIUM 127 mmol/L (136-145)
== END ==
LOC: C.LABFOXAE 08:48
PROVIDERS: ATTEND Internal Medicine Hospice and Palliative Medicine
DX: N17.9 Acute kidney failure, unspecified (principal); I48.91 Unspecified atrial fibrillation

== ENCOUNTER → 2018-01-10 | Outpatient (CLI) | payer BC ==
[2018-01-10 09:38] LABS: HEMATOCRIT 28.4 % (42-52); HEMOGLOBIN 9.3 g/dL (14.0-18.0); MEAN CELL VOLUME 92.8 fL (80-100); MEAN CORPUSCULAR HEMOGLOBIN 30.4 pg (25-34); MEAN CORPUSCULAR HGB CONC 32.7 g/dl (32-36); MEAN PLATELET VOLUME 9.7 fL (7.4-10.4); PLATELET COUNT 184 K/uL (130-400); RED CELL DISTRIBUTION WIDTH CV 13.8 % (11.5-14.5); RED CELL DISTRIBUTION WIDTH SD 46.4 fL (36.4-46.3); WHITE BLOOD COUNT 5.95 K/uL (4.8-10.8)
[2018-01-10 09:43] LABS: INR 1.6 (0.9-1.1)
== END | disposition home or self-care (01) ==
LOC: C.LABFOXAE 09:01
PROVIDERS: ATTEND Nurse Practitioner Family
DX: I48.91 Unspecified atrial fibrillation (principal)

== ENCOUNTER → 2018-01-13 | Outpatient (CLI) | payer BC ==
[2018-01-13 09:56] LABS: INR 1.6 (0.9-1.1)
== END ==
LOC: C.LABFOXAE 08:59
PROVIDERS: ATTEND Internal Medicine
DX: I48.91 Unspecified atrial fibrillation (principal)

== ENCOUNTER → 2018-01-20 | Outpatient (CLI) | payer BC ==
[2018-01-20 09:34] LABS: INR 2.5 (0.9-1.1)
== END | disposition home or self-care (01) ==
LOC: C.LABFOXMH 08:17
PROVIDERS: ATTEND Internal Medicine
DX: Z79.01 Long term (current) use of anticoagulants (principal)

== ENCOUNTER → 2018-01-21 | Outpatient (CLI) | payer BC ==
[2018-01-21 09:20] LABS: BLOOD UREA NITROGEN 19 mg/dl (7-18); CALCIUM 8.8 mg/dl (8.5-10.1); CARBON DIOXIDE 30 mmol/L (21-32); CREATININE 1.27 mg/dl (0.60-1.40); GLUCOSE 110 mg/dl (70-99); POTASSIUM 4.5 mmol/L (3.5-5.1); SODIUM 133 mmol/L (136-145)
== END | disposition home or self-care (01) ==
LOC: C.LABFOXAE 07:33
PROVIDERS: ATTEND Internal Medicine
DX: I10 Essential (primary) hypertension (principal)

== ENCOUNTER → 2018-01-27 | Outpatient (CLI) | payer BC, OTHER ==
[~2018-01-27] MED LIST changes: -ASPEC81 PO; +ASPI-320 PO
== END | disposition home or self-care (01) ==
LOC: C.LABFOXAE 09:08
PROVIDERS: ATTEND Internal Medicine Hospice and Palliative Medicine
DX: I48.91 Unspecified atrial fibrillation (principal)

== ENCOUNTER → 2018-02-03 | Outpatient (CLI) | payer BC ==
[2018-02-03 09:43] LABS: INR 1.4 (0.9-1.1)
[2018-02-03 09:47] LABS: BLOOD UREA NITROGEN 21 mg/dl (7-18); CALCIUM 8.8 mg/dl (8.5-10.1); CARBON DIOXIDE 32 mmol/L (21-32); CREATININE 1.42 mg/dl (0.60-1.40); GLUCOSE 85 mg/dl (70-99); POTASSIUM 4.7 mmol/L (3.5-5.1); SODIUM 131 mmol/L (136-145)
== END | disposition home or self-care (01) ==
LOC: C.LABFOXAE 09:18
PROVIDERS: ATTEND Internal Medicine
DX: I50.40 Unspecified combined systolic (congestive) and diastolic (congestive) heart failure (principal)

== ENCOUNTER → 2018-02-10 | Outpatient (CLI) | payer BC ==
[2018-02-10 09:56] LABS: INR 1.5 (0.9-1.1)
== END ==
LOC: C.LABFOXAE 08:45
PROVIDERS: ATTEND Nurse Practitioner Family
DX: I48.91 Unspecified atrial fibrillation (principal)

== ENCOUNTER → 2018-02-17 | Outpatient (CLI) | payer BC ==
[2018-02-17 09:06] LABS: INR 1.5 (0.9-1.1)
== END | disposition home or self-care (01) ==
LOC: C.LABFOXAE 08:26
PROVIDERS: ATTEND Nurse Practitioner Family
DX: I48.91 Unspecified atrial fibrillation (principal); Z79.01 Long term (current) use of anticoagulants

== ENCOUNTER → 2018-02-24 | Outpatient (CLI) | payer BC ==
[2018-02-24 09:18] LABS: INR 2.1 (0.9-1.1)
== END | disposition home or self-care (01) ==
LOC: C.LABFOXAE 08:42
PROVIDERS: ATTEND Internal Medicine
DX: Z79.01 Long term (current) use of anticoagulants (principal)

== ENCOUNTER → 2018-03-01 | Outpatient (CLI) | payer BC ==
[2018-03-01 10:05] LABS: BLOOD UREA NITROGEN 20 mg/dl (7-18); CREATININE 1.24 mg/dl (0.60-1.40); GLUCOSE 86 mg/dl (70-99)
[2018-03-01 10:06] LABS: CALCIUM 8.7 mg/dl (8.5-10.1); CARBON DIOXIDE 30 mmol/L (21-32); POTASSIUM 4.2 mmol/L (3.5-5.1); SODIUM 139 mmol/L (136-145)
== END | disposition home or self-care (01) ==
LOC: C.LABFOXAE 08:53
PROVIDERS: ATTEND Internal Medicine
DX: I50.32 Chronic diastolic (congestive) heart failure (principal)

== ENCOUNTER → 2018-05-19 | Outpatient (CLI) | payer BC ==
[2018-05-19 10:25] LABS: INR 2.2 (0.9-1.1)
== END | disposition home or self-care (01) ==
LOC: C.LABFOXAE 09:23
PROVIDERS: ATTEND Nurse Practitioner Family
DX: I48.91 Unspecified atrial fibrillation (principal)

== ENCOUNTER 2019-05-09 04:48 | Observation (INO) ==
--- NOTE | 2019-04-27 11:14 | PAT Medication Instructions ---
Medication Instructions Date of Service April 27, 2019 Home Medications acetaminophen 325 mg tablet 650 mg PO Q6H NEEDED acetaminophen 650 mg rectal suppository 650 mg CA Q6H NEEDED albuterol sulfate 2.5 mg/3 mL (0.083 %) solution for nebulization 2.5 mg INH Q6H NEEDED apixaban 2.5 mg tablet 2.5 mg PO BID bisacodyl 10 mg rectal suppository 10 mg CA DAILY NEEDED budesonide 0.5 mg/2 mL suspension for nebulization 2 ml INH BID buspirone 5 mg tablet 5 mg PO BID cholecalciferol (vitamin D3) 2,000 unit capsule 2,000 units PO DAILY escitalopram 10 mg tablet 15 mg PO DAILY fentanyl 12 mcg/hr transdermal patch 1 patch TD Q72H fluticasone propionate 50 mcg/actuation blister powder for inhalation 1 inha INH DAILY hydrocortisone 1 % topical cream 1 appln TOP BID isosorbide mononitrate ER 60 mg tablet,extended release 24 hr 60 mg PO DAILY loperamide 2 mg capsule 2 mg PO Q4H magnesium hydroxide 400 mg/5 mL oral suspension 30 ml PO DAILY NEEDED nystatin 100,000 unit/gram topical cream 1 appln TOP BID NEEDED ondansetron HCl 4 mg tablet 4 mg PO Q8H NEEDED pantoprazole 40 mg tablet,delayed release 40 mg PO DAILY polyethylene glycol 3350 17 gram/dose oral powder 17 gm PO DAILY silodosin 8 mg capsule 8 mg PO DAILY tiotropium bromide 2.5 mcg/actuation mist for inhalation 2 puffs INH DAILY tramadol 50 mg tablet 50 mg PO TID NEEDED amino ac-protein hydro-whey protein 10 gram-100 kcal/30 mL oral liquid See Rx Instructions PO .COMPLEX loperamide 2 mg capsule 2 mg PO Q4H NEEDED doxycycline hyclate 100 mg PO BID spironolactone [Aldactone] 25 mg PO DAILY Continue as directed fentanyl 12 mcg/hr transdermal patch 1 patch TD Q72H ASK your prescriber and surgeon apixaban 2.5 mg tablet 2.5 mg PO BID STOP taking 24 hours before surgery nystatin 100,000 unit/gram topical cream 1 appln TOP BID NEEDED hydrocortisone 1 % topical cream 1 appln TOP BID DO NOT take the morning of surgery spironolactone [Aldactone] 25 mg PO DAILY loperamide 2 mg capsule 2 mg PO Q4H NEEDED polyethylene glycol 3350 17 gram/dose oral powder 17 gm PO DAILY ondansetron HCl 4 mg tablet 4 mg PO Q8H NEEDED magnesium hydroxide 400 mg/5 mL oral suspension 30 ml PO DAILY NEEDED cholecalciferol (vitamin D3) 2,000 unit capsule 2,000 units PO DAILY bisacodyl 10 mg rectal suppository 10 mg CA DAILY NEEDED Take morning of surgery With a small sip of water, OTHERWISE NOTHING TO EAT OR DRINK AFTER MIDNIGHT: doxycycline hyclate 100 mg PO BID tramadol 50 mg tablet 50 mg PO TID NEEDED (if needed) tiotropium bromide 2.5 mcg/actuation mist for inhalation 2 puffs INH DAILY silodosin 8 mg capsule 8 mg PO DAILY pantoprazole 40 mg tablet,delayed release 40 mg PO DAILY loperamide 2 mg capsule 2 mg PO Q4H isosorbide mononitrate ER 60 mg tablet,extended release 24 hr 60 mg PO DAILY fluticasone propionate 50 mcg/actuation blister powder for inhalation 1 inha INH DAILY escitalopram 10 mg tablet 15 mg PO DAILY budesonide 0.5 mg/2 mL suspension for nebulization 2 ml INH BID buspirone 5 mg tablet 5 mg PO BID acetaminophen 325 mg tablet 650 mg PO Q6H NEEDED (if needed) acetaminophen 650 mg rectal suppository 650 mg CA Q6H NEEDED (if needed) albuterol sulfate 2.5 mg/3 mL (0.083 %) solution for nebulization 2.5 mg INH Q6H NEEDED (if needed) Take evening before surgery doxycycline hyclate 100 mg PO BID loperamide 2 mg capsule 2 mg PO Q4H NEEDED (if needed) amino ac-protein hydro-whey protein 10 gram-100 kcal/30 mL oral liquid See Rx Instructions PO tramadol 50 mg tablet 50 mg PO TID NEEDED (if needed) ondansetron HCl 4 mg tablet 4 mg PO Q8H NEEDED (if needed) magnesium hydroxide 400 mg/5 mL oral suspension 30 ml PO DAILY NEEDED (if needed) loperamide 2 mg capsule 2 mg PO Q4H budesonide 0.5 mg/2 mL suspension for nebulization 2 ml INH BID buspirone 5 mg tablet 5 mg PO BID bisacodyl 10 mg rectal suppository 10 mg CA DAILY NEEDED (if needed) acetaminophen 325 mg tablet 650 mg PO Q6H NEEDED (if needed) acetaminophen 650 mg rectal suppository 650 mg CA Q6H NEEDED (if needed) albuterol sulfate 2.5 mg/3 mL (0.083 %) solution for nebulization 2.5 mg INH Q6H NEEDED (if needed) Other Notes If you have any questions please call us at [phone] or [phone] or [phone] or [phone]
--- NOTE | 2019-04-28 08:53 | PAT Medication Instructions ---
Medication Instructions Date of Service April 28, 2019 Home Medications Medications acetaminophen 325 mg tablet 650 mg PO Q6H PRN tab 12/05/18 [History Confirmed 04/27/19] acetaminophen 650 mg rectal suppository 650 mg OK Q6H PRN 12/05/18 [History Confirmed 04/27/19] albuterol sulfate 2.5 mg/3 mL (0.083 %) solution for nebulization 2.5 mg INH Q6H PRN ml 12/05/18 [History Confirmed 04/27/19] apixaban 2.5 mg tablet 2.5 mg PO BID 12/05/18 [History Confirmed 04/27/19] bisacodyl 10 mg rectal suppository 10 mg OK DAILY PRN 12/05/18 [History Confirmed 04/27/19] budesonide 0.5 mg/2 mL suspension for nebulization 2 ml INH BID 12/05/18 [History Confirmed 04/27/19] buspirone 5 mg tablet 5 mg PO BID 12/05/18 [History Confirmed 04/27/19] cholecalciferol (vitamin D3) 2,000 unit capsule 2,000 units PO DAILY 12/05/18 [History Confirmed 04/27/19] escitalopram 10 mg tablet 15 mg PO DAILY tab 12/05/18 [History Confirmed 04/27/19] fentanyl 12 mcg/hr transdermal patch 1 patch TD Q72H 12/05/18 [History Confirmed 04/27/19] fluticasone propionate 50 mcg/actuation blister powder for inhalation 1 inha INH DAILY ea 12/05/18 [History Confirmed 04/27/19] hydrocortisone 1 % topical cream 1 appln TOP BID 12/05/18 [History Confirmed 04/27/19] isosorbide mononitrate ER 60 mg tablet,extended release 24 hr 60 mg PO DAILY 12/05/18 [History Confirmed 04/27/19] loperamide 2 mg capsule 2 mg PO Q4H 12/05/18 [History Confirmed 04/27/19] magnesium hydroxide 400 mg/5 mL oral suspension 30 ml PO DAILY PRN ml 12/05/18 [History Confirmed 04/27/19] nystatin 100,000 unit/gram topical cream 1 appln TOP BID PRN 12/05/18 [History Confirmed 04/27/19] ondansetron HCl 4 mg tablet 4 mg PO Q8H PRN tab 12/05/18 [History Confirmed 04/27/19] pantoprazole 40 mg tablet,delayed release 40 mg PO DAILY 12/05/18 [History Confirmed 04/27/19] polyethylene glycol 3350 17 gram/dose oral powder 17 gm PO DAILY 12/05/18 [History Confirmed 04/27/19] silodosin 8 mg capsule 8 mg PO DAILY 12/05/18 [History Confirmed 04/27/19] tiotropium bromide 2.5 mcg/actuation mist for inhalation 2 puffs INH DAILY 12/05/18 [History Confirmed 04/27/19] tramadol 50 mg tablet 50 mg PO TID PRN 12/05/18 [History Confirmed 04/27/19] amino ac-protein hydro-whey protein 10 gram-100 kcal/30 mL oral liquid See Rx Instructions PO .COMPLEX ml 12/19/18 [History Confirmed 04/27/19] loperamide 2 mg capsule 2 mg PO Q4H PRN 12/19/18 [History Confirmed 04/27/19] doxycycline hyclate 100 mg PO BID 04/27/19 [History Confirmed 04/27/19] spironolactone [Aldactone] 25 mg PO DAILY 04/27/19 [History Confirmed 04/27/19] Take morning of surgery With a small sip of water, OTHERWISE NOTHING TO EAT OR DRINK AFTER MIDNIGHT: Insulin Dependent Diabetic Patients * Test your blood sugar the morning of surgery * If Blood Sugar is GREATER THAN 150, take HALF of your regular dose of: * If Blood Sugar is LESS THAN 150, DO NOT TAKE ANY: Other Notes If you have any questions please call us at [phone] or [phone] or [phone] or [phone]
--- NOTE | 2019-04-28 11:57 | Anesthesiology Consultation ---
Date of Service April 28, 2019 Assessment & Plan (1) Encounter for pre-operative examination: - PCP: 05/01/19: "patient cleared to proceed with surgery. Elevated risks due to pulmonary HTN, hx diastolic dysfunction. We generally run a little dry as outpatient and his breathing has benefited. I see no testing that would alter his risk further." - Eliquis instructions: per surgeon/prescriber (advised that for possibility of spinal anesthesia, Eliquis will need to be held 72 hours prior to surgery; ok per prescriber). - Aortic stenosis: "mild" aortic stenosis per 04/2017 ECHO (but values: MG 22.8mmhg, SUZIE 0.99cm2)* Chart Review Chart Review: Acceptable Risk for Surgery and Patient seen in Pre Admission Testing Teaching & Discussion Pre-Anesthesia Teaching/Discussion Notes: Instructed NPO after midnight before surgery,except medications with 15 cc of water. Medication instructions provided according to the PAT guidelines. History Surgery Operation Date: 05/09/19 07:00 Proposed Procedures p Right 2nd Toe Amputation - Etienne Moon MD Height/Weight Height: 5 ft 5 in Weight: 53.977 kg (primarily wheelchair bound; weight per verbal) Allergies Allergy/AdvReac Type Severity Reaction Status Date / Time simvastatin Allergy Mild PER Verified 04/28/19 12:03 RECORDS- PATIENT DENIES amiodarone Allergy Unknown PER Unverified 04/28/19 12:03 RECORDS- PATIENT DENIES HMG-CoA-R Inhibitors Allergy Unknown PER Uncoded 04/28/19 12:03 RECORDS- PATIENT DENIES Medications Home Medications Medication Instructions Recorded Confirmed Last Taken acetaminophen 325 mg tablet 650 mg PO Q6H PRN tab 12/05/18 04/27/19 Unknown acetaminophen 650 mg rectal 650 mg MD Q6H PRN 12/05/18 04/27/19 Unknown suppository albuterol sulfate 2.5 mg/3 mL 2.5 mg INH Q6H PRN ml 12/05/18 04/27/19 Unknown (0.083 %) solution for nebulization apixaban 2.5 mg tablet 2.5 mg PO BID 12/05/18 04/27/19 Unknown bisacodyl 10 mg rectal suppository 10 mg MD DAILY PRN 12/05/18 04/27/19 Unknown budesonide 0.5 mg/2 mL suspension 2 ml INH BID 12/05/18 04/27/19 Unknown for nebulization buspirone 5 mg tablet 5 mg PO BID 12/05/18 04/27/19 Unknown cholecalciferol (vitamin D3) 2,000 2,000 units PO DAILY 12/05/18 04/27/19 Unknown unit capsule escitalopram 10 mg tablet 15 mg PO DAILY tab 12/05/18 04/27/19 Unknown fentanyl 12 mcg/hr transdermal 1 patch TD Q72H 12/05/18 04/27/19 Unknown patch fluticasone propionate 50 1 inha INH DAILY ea 12/05/18 04/27/19 Unknown mcg/actuation blister powder for inhalation hydrocortisone 1 % topical cream 1 appln TOP BID 12/05/18 04/27/19 Unknown isosorbide mononitrate ER 60 mg 60 mg PO DAILY 12/05/18 04/27/19 Unknown tablet,extended release 24 hr loperamide 2 mg capsule 2 mg PO Q4H 12/05/18 04/27/19 Unknown magnesium hydroxide 400 mg/5 mL 30 ml PO DAILY PRN ml 12/05/18 04/27/19 Unknown oral suspension nystatin 100,000 unit/gram topical 1 appln TOP BID PRN 12/05/18 04/27/19 Unknown cream ondansetron HCl 4 mg tablet 4 mg PO Q8H PRN tab 12/05/18 04/27/19 Unknown pantoprazole 40 mg tablet,delayed 40 mg PO DAILY 12/05/18 04/27/19 Unknown release polyethylene glycol 3350 17 17 gm PO DAILY 12/05/18 04/27/19 Unknown gram/dose oral powder silodosin 8 mg capsule 8 mg PO DAILY 12/05/18 04/27/19 Unknown tiotropium bromide 2.5 2 puffs INH DAILY 12/05/18 04/27/19 Unknown mcg/actuation mist for inhalation tramadol 50 mg tablet 50 mg PO TID PRN 12/05/18 04/27/19 Unknown amino ac-protein hydro-whey See Rx Instructions PO .COMPLEX ml 12/19/18 04/27/19 Unknown protein 10 gram-100 kcal/30 mL oral liquid loperamide 2 mg capsule 2 mg PO Q4H PRN 12/19/18 04/27/19 Unknown doxycycline hyclate 100 mg PO BID 04/27/19 04/27/19 Unknown spironolactone [Aldactone] 25 mg PO DAILY 04/27/19 04/27/19 Unknown Past Medical History Medical History Chronic kidney disease Anxiety Aortic stenosis Per 04/2017 report: "Mild" aortic stenosis (but values: MG 22.8mmhg, SUZIE 0.99cm2) Atrial fibrillation on abixapan BPH (benign prostatic hyperplasia) COPD (chronic obstructive pulmonary disease) Chronic back pain Congestive heart failure remote; no recent issues Dyslipidemia GERD (gastroesophageal reflux disease) controlled HTN (hypertension) Obstructive sleep apnea no device Osteoarthritis Osteoporosis Pulmonary HTN RVSP 50-60mmhg per 2017 ECHO Restricted diet regular, pureed texture, thin consistency, liquidized puree Transient ischemic attack (TIA) per remote records; patient denies Exercise / Class Metabolic Activity III < 4 Walking/Shop/Light housework (primarily wheelchair bound but uses walker for short distances without issue) Past Surgical History Surgical History H/O arthroscopy of left knee H/O colectomy partial H/O rotator cuff surgery right Past Anesthesia History No Hx of Anesthesia Complications and No Family Hx of Anesthesia Complications History of PONV No Hx of PONV and No Hx of Motion Sickness Social History Smoking Status: Former smoker Do You Dip or Chew Tobacco: No Smoking End Date: QUIT YEARS AGO Hx Alcohol Use: No Hx Substance Use: No Review of Systems Patient denies chest pain, shortness of breath, cough, wheezing, palpitations. Physical Exam Vital Signs ITALS BP 124/70 P 86 TEMP 97.9 SP02 96%RA RESP 18 PHYSICAL Mildly decreased cervical extension. Full TMJ range of motion. TMD 3 finger breaths Mallampati Score 2 Dentition: edentulous Lungs: clear throughout to auscultation Cardiac: irregular rhythm, regular rate, I/ systolic murmur Spine: normal Carotid arteries: negative bruit Extremities: right ankle in soft boot Testing Laboratory Results PT 10.9 Seconds (9.0-12.0) 04/28/19 12:27 INR 1.1 (0.9-1.1) 04/28/19 12:27 APTT 28.4 Seconds (21.0-31.0) 04/28/19 12:27 04/06/19 WBC 9.8 H/H 13.5/39.8 PLATELETS 199 SODIUM 137 POTASSIUM 4.9 CHLORIDE 106 CO2 23 BUN 49 CREATININE 1.54 GLUCOSE 112 Electrocardiogram Date: 04/28/19 Findings: + AFIB @ (78) Echocardiogram Date: 05/14/17 LV systolic function "normal." Mild cLVH. Severe LAD. Moderate RAD. Mild MR. Mild TR. RVSP elevated 50-60mmhg. "Mild" aortic stenosis (MG 22.8mmhg, SUZIE 0.99cm2)
[2019-04-28 13:11] LABS: INR 1.1 (0.9-1.1); Partial Thromboplastin Time 28.4 Seconds (21.0-31.0); Prothrombin Time 10.9 Seconds (9.0-12.0)
[2019-05-09] MEDS ORDERED: VANCOMYCIN HCL 1,000 MG/270 ML BAG IV SCH (06:00)
[2019-05-09] MEDS ORDERED: LR 15ML/HR IV SCH (06:00)
[2019-05-09] MEDS ORDERED: ROPIVACAINE 0.5% 5 MG/ML 30 ML VIAL ONE (06:35)
[2019-05-09] MEDS ORDERED: LIDOCAINE HCL 1% 20 ML VIAL ONE (06:37)
[2019-05-09] MEDS ORDERED: BUPIVACAINE 0.5 % 5 MG/1 ML MPF 30ML VIAL ONE (06:37)
[2019-05-09] MEDS ORDERED: fentaNYL citrate 100 MCG/2 ML VIAL IV PRN (06:43)
[2019-05-09] MEDS ORDERED: ePHEDrine sulfate 50 MG/ML AMP IV PRN (06:43)
[2019-05-09] MEDS ORDERED: ATROPINE SULFATE 0.1 MG/ML 10ML SYR IV PRN (06:43)
[2019-05-09] MEDS ORDERED: ONDANSETRON INJ 2 MG/ML 2 ML VIAL IV PRN ×2 (06:43→09:27)
[2019-05-09] MEDS ORDERED: LIDOCAINE HCL 2% 2 ML VIAL/AMP(20MG/ML) INFIL ONE (06:47)
[2019-05-09] MEDS ORDERED: PROPOFOL IV EMULSION 10 MG/ML 20 ML VIAL IV ONE (06:47)
--- NOTE | 2019-05-09 06:54 | History & Physical Bridge Note ---
Date of Service May 09, 2019 History & Physical Bridge Note I have examined the patient, reviewed the History & Physical and in the interval since the performance of the History & Physical I have noted the following changes of clinical significance: no changes noted
[2019-05-09] MEDS ORDERED: CEFAZOLIN 250 MG/ML 1 GM VIAL ONE (07:14)
[2019-05-09] MEDS ORDERED: CEFAZOLIN 1000MG 1,000 MG/7.5 ML SYR IV SCH (07:45)
--- NOTE | 2019-05-09 08:20 | Operative Report ---
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 He has a chronic PIP joint toe wound right foot second toe. Has not healed with wound treatments and imaging studies suggest the development of osteomyelitis. The bone is exposed within the wound. Description of Procedure Informed consent obtained. Patient identified. He identified the operative site as the right second toe which I marked with my initials. Preop surgical timeout performed. Preop dose of IV antibiotics given. 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 He was positioned supine on the OR table with bumps under his back and neck so that he was semi-recumbent. Tourniquet was applied to the left calf just below the peroneal nerve. The leg was pre-scrubbed and prepped with Betadine draped in usual sterile fashion. There was a eschar over the PIP joint about a centimeter in diameter and one removed there is 1/2 cm area of granulation tissue bleeding and exposed PIP joint. The toe was swollen without significant erythema no purulence. Capillary refill less than 2 seconds. DVT prophylaxis with mechanical devices. Postoperatively he will be restarted on his Eliquis which was held preoperatively. He had also received a preop medical evaluation from his family doctor. Limb exsanguinated with gravity. Tourniquet inflated to 250 mmHg. A tennis racquet style incision was made extending up the shaft dorsally for about 1/2 cm and then beginning just proximal to the wound circumferential creating a long plantar flap. The incision was carried sharply down to the bone. There was good bleeding and no purulence. The proximal phalanx was amputated just behind the condyles and smoothed with rongeur. A culture was obtained of the toe wound which was also sent for specimen. The flexor tendon was pulled into the wound and cut as far proximal as possible. The tourniquet was let down and meticulous hemostasis was performed. There was good bleeding throughout the wound. Irrigation was done with Betadine followed by sterile saline. The skin was then closed with 3-0 and 4-0 nylon sutures. A soft sterile dressing was applied along with postop shoe. Tourniquet time was approximately 15 minutes. Good circulation within the flap and good tension-free closure. Foot he was awake from anesthesia without difficulty taken to the recovery room in stable condition. Specimens were as mentioned above. Counts were correct blood loss was 2 cc. At the conclusion the operation I contacted the attendant from [facility]. Patient will be admitted to the hospital for monitoring of his medical condition and restarting of his blood thinner as well as postop intravenous antibiotics. I attest to the content of the Intraoperative Record and any orders documented therein. Any exceptions are noted below.
--- NOTE | 2019-05-09 08:20 | Operative Report ---
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 Table Inspector Sheryl Quinones PA-C Estimated Blood Loss 2 Findings Consistent with Post-Op Diagnosis Specimens intra-operative cultures right 2nd toe Anesthesia Type MAC Regional Complications none Description of Procedure Patient was taken to the operating room, placed under IV sedation. He was prepped and draped in routine sterile fashion. He was given 1000mg IV Vancomycin and 1000mg IV Ancef for surgical prophylaxis preoperatively. I was present during the entire case and assisted with exposure, removal of the toe, hemostasis and closure. Please see Dr. Moon's operative report for further detail. Patient was taken to the recovery room in stable condition. I attest to the content of the Intraoperative Record and any orders documented therein. Any exceptions are noted below.
--- NOTE | 2019-05-09 08:44 | Anesthesiology Progress Note ---
Date of Service May 09, 2019 Anesthesia Post Procedure Vital Signs Vital Signs: Temp Pulse Pulse Resp BP Pulse Ox 05/09/19 08:30 68 12 105/72 97 05/09/19 08:20 96.8 F L 72 12 109/76 97 05/09/19 05:58 97.7 F 88 103/67 96 Transfer of Care Handoff Completed per policy Notes Mental Status: alert / awake / arousable and participated in evaluation Patient Amnestic to Procedure: Yes Nausea / Vomiting: adequately controlled Pain: adequately controlled Airway Patency, RR, SpO2: stable & adequate BP & HR: stable & adequate Hydration State: stable & adequate Anesthetic Complications: no major complications apparent and Pt Satisfied with anesthetic care
--- NOTE | 2019-05-09 08:52 | Fluoroscopy Report ---
FL toe RT 2V CLINICAL HISTORY: RT 2ND TOE AMPUTAION COMPARISON STUDY: None FLUOROSCOPY TIME: 25 seconds NUMBER OF FLUOROSCOPIC IMAGES: 1 FINDINGS: Operative amputation of the phalanges of the second toe. There is moderate residual compone nt of the proximal phalanx. IMPRESSION: Image intensifier utilized for intraoperative amputation of the middle and distal phalanx of the right second toe. The above report was generated using voice recognition software. It may contain grammatical, syntax or spelling errors. Electronically signed by: Andrea Booker M.D. 05/09/2019 8:50 AM
[2019-05-09] MEDS ORDERED: BISACODYL 10 MG SUPP PR PRN (09:27)
[2019-05-09] MEDS ORDERED: VANCOMYCIN CONSULT ACTIVE PRN (09:27)
[2019-05-09] MEDS ORDERED: TRAMADOL HCL 50 MG TABLET PO PRN (09:27)
[2019-05-09] MEDS ORDERED: ALBUTEROL 0.083% NEBU SOLN 3 ML VIAL INH PRN (09:27)
[2019-05-09] MEDS ORDERED: OXYCODONE HCL IR 5 MG TAB (IMMEDIATE RELEASE) PO PRN (09:27)
[2019-05-09] MEDS ORDERED: LOPERAMIDE HCL 2 MG CAP PO PRN (09:27)
[2019-05-09] MEDS ORDERED: NALOXONE HCL 0.4 MG/1 ML VIAL/CARP IV PRN (09:27)
[2019-05-09] MEDS ORDERED: ACETAMINOPHEN 325 MG TAB PO PRN (09:59)
[2019-05-09] MEDS ORDERED: BUDESONIDE 0.5 MG/2 ML VIAL (PULMICORT) INH SCH (10:00)
[2019-05-09] MEDS ORDERED: fentaNYL 12 MCG/HR TDSY TD SCH (10:00)
[2019-05-09] MEDS: SODIUM CHLORIDE 0.9% 1000ML 1,000 ML IV SCH ×2 (10:58→22:42)
[2019-05-09] MEDS: ISOSORBIDE MONO EXTENDED REL 60 MG TABCR PO SCH (11:00)
[2019-05-09] MEDS: DOCUSATE SODIUM 100 MG CAP PO SCH ×2 (11:00→21:23)
[2019-05-09] MEDS: PANTOprazole 40 MG TAB PO SCH (11:01)
[2019-05-09] MEDS: CHOLECALCIFEROL 1,000 UNITS TAB PO SCH (11:01)
[2019-05-09] MEDS: TIOTROPIUM BROMIDE 5 PUFF/90 MCG INH INH SCH (11:02)
[2019-05-09] MEDS: POLYETHYLENE (MIRALAX) 17 GM PACK PO SCH (11:02)
[2019-05-09] MEDS: ESCITALOPRAM OXALATE 10 MG TAB PO SCH (11:10)
[2019-05-09] MEDS: SPIRONOLACTONE 25 MG TAB PO SCH (13:22)
[2019-05-09] MEDS: CEFAZOLIN 1000MG 1,000 MG/7.5 ML SYR IV SCH ×2 (15:03→22:41)
[2019-05-09] MEDS ORDERED: CHECK FENTANYL PATCH PLACEMENT SCH (16:00)
[2019-05-09] MEDS: CHECK FENTANYL PATCH PLACEMENT SCH ×2 (16:12→23:02)
--- NOTE | 2019-05-09 17:01 | Orthopedic Progress Note ---
Date of Service May 09, 2019 Assessment & Plan (1) Ulcer of right second toe: POD 0 - s/p right 2nd toe amputation Ice/elevation as needed for pain/swelling. Post op shoe right foot when out of bed Weight bear as tolerated with weight on heel right foot re-start home medications. Re-start Eliquis tonight at 9 p.m. Regular diet as ordered Pain medication PRN as prescribed Appreciate medicine assistance. PT/OT tomorrow. Case management for disposition needs. Will plan to D/C to [facility] tomorrow. Findings discussed with Dr. Moon. Will re-eval in AM. Present on Admission?: Yes Subjective patient resting in bed, denies pain. Tolerating regular diet. Denies chest pain or shortness of breath. Physical Exam Physical Exam: Right foot dressings clean, dry, intact. Post op shoe in place, elevated on a couple of pillows. Cap refill normal right great toe. Results & Data Vital Signs (Past 12 Hours) Vital Signs Temp Pulse Pulse Resp BP Pulse Ox 05/09/19 15:48 36.5 C 87 16 115/71 100 05/09/19 15:23 36.7 C 80 18 127/77 100 05/09/19 12:18 83 18 107/68 100 05/09/19 11:14 79 20 124/74 98 05/09/19 10:11 78 18 128/75 99 05/09/19 09:44 83 18 132/88 100 05/09/19 09:15 36.5 C 74 18 131/82 94 05/09/19 08:55 70 16 129/83 97 05/09/19 08:40 36.0 C L 77 16 113/80 95 05/09/19 08:30 68 12 105/72 97 05/09/19 08:20 36.0 C L 72 12 109/76 97 05/09/19 05:58 36.5 C 88 103/67 96 Laboratory Results Culture pending Gram stain: no organisms
--- NOTE | 2019-05-09 17:11 | Hospitalist Progress Note ---
Date of Service May 09, 2019 Assessment & Plan (1) Ulcer of right second toe: Postop per orthopedics (2) Chronic kidney disease: Appears to be stable in stage III. Avoid nephrotoxic medications. Otherwise follow (3) Afib: Rate controlled, anticoagulated with Eliquis (resume once safe postop per Ortho) (4) COPD (chronic obstructive pulmonary disease): No shortness of breath, continue home inhalers (5) DVT prophylaxis: Eliquis as per above Subjective Patient seen postop feeling good. No significant pain. No chest pain no shortness of breath. Review of Systems Review of Systems: All systems reviewed & are unremarkable except as noted in HPI & below Physical Exam Physical Exam: General he is awake and alert pleasant no distress. HEENT normocephalic atraumatic mucous members are moist. Cardio is somewhat distant no rubs murmurs or gallops, breathing unlabored no accessory muscle use good eff ort, no rales rhonchi or wheezes. Skin shows no rashes no pallor or icterus. Foot is dressed and wrapped, no surrounding erythema. No calf tenderness bilaterally Results & Data Vital Signs (Past 12 Hours) Vital Signs Temp Pulse Pulse Resp BP Pulse Ox 05/09/19 15:48 36.5 C 87 16 115/71 100 05/09/19 15:23 36.7 C 80 18 127/77 100 05/09/19 12:18 83 18 107/68 100 05/09/19 11:14 79 20 124/74 98 05/09/19 10:11 78 18 128/75 99 05/09/19 09:44 83 18 132/88 100 05/09/19 09:15 36.5 C 74 18 131/82 94 05/09/19 08:55 70 16 129/83 97 05/09/19 08:40 36.0 C L 77 16 113/80 95 05/09/19 08:30 68 12 105/72 97 05/09/19 08:20 36.0 C L 72 12 109/76 97 05/09/19 05:58 36.5 C 88 103/67 96 PG Care Time/CCT Total # of Minutes Spent Total Time Spent with Patient: Total time spent is greater than 50% in coordination of care (as documented) at patient's floor/unit and/or counseling patient:
[2019-05-09] MEDS ORDERED: VANCOMYCIN HCL 750 MG in SODIUM CHLORIDE 0.9% 250 ML IV SCH (17:30)
[2019-05-09] MEDS: BUDESONIDE 0.5 MG/2 ML VIAL (PULMICORT) NEB SCH (19:24)
[2019-05-09] MEDS: APIXABAN 2.5 MG TAB PO SCH (21:23)
[2019-05-10 06:49] LABS: Hemoglobin 13.5 g/dL (14.0-18.0); Mean Corpuscular Hgb Conc 32.9 g/dL (32-36); Mean Corpuscular Volume 95.3 fL (80-100); Mean Platelet Volume 10.1 fL (7.4-10.4); Platelet Count 187 K/uL (130-400); RDW Standard Deviation 48.3 fL (36.4-46.3)
[2019-05-10 07:14] LABS: BUN Creatinine Ratio 26.9 (10-20); Calcium 8.7 mg/dl (8.5-10.1); Creatinine Clr Calc Pharmacy 30.8 ml/min; Est GFR (African American) 62.2; Est GFR (Non-African American) 53.7; Potassium 4.7 mmol/L (3.5-5.1)
[2019-05-10] MEDS: BUDESONIDE 0.5 MG/2 ML VIAL (PULMICORT) NEB SCH (07:36)
[2019-05-10] MEDS: CHECK FENTANYL PATCH PLACEMENT SCH (08:09)
[2019-05-10] MEDS: POLYETHYLENE (MIRALAX) 17 GM PACK PO SCH (08:22)
[2019-05-10] MEDS: SPIRONOLACTONE 25 MG TAB PO SCH (08:25)
[2019-05-10] MEDS: DOCUSATE SODIUM 100 MG CAP PO SCH (08:27)
[2019-05-10] MEDS: ISOSORBIDE MONO EXTENDED REL 60 MG TABCR PO SCH (08:28)
[2019-05-10] MEDS: APIXABAN 2.5 MG TAB PO SCH (08:28)
[2019-05-10] MEDS: PANTOprazole 40 MG TAB PO SCH (08:35)
[2019-05-10] MEDS: CHOLECALCIFEROL 1,000 UNITS TAB PO SCH (08:36)
[2019-05-10] MEDS: TIOTROPIUM BROMIDE 5 PUFF/90 MCG INH INH SCH (08:38)
[2019-05-10] MEDS ORDERED: fentaNYL 12 MCG/HR TDSY TD SCH (09:00)
[2019-05-10] MEDS: ESCITALOPRAM OXALATE 10 MG TAB PO SCH (09:02)
--- NOTE | 2019-05-10 09:08 | Orthopedic Progress Note ---
Date of Service May 10, 2019 Assessment & Plan (1) Ulcer of right second toe: Patient seen and examined. Tramaine w DRU. Stable for D/C. Followup next week. Po doxycycline. elevate. WBAT. Path and cx pending. Labs and vitals noted. Present on Admission?: Yes Results & Data Vital Signs (Past 12 Hours) Vital Signs Temp Pulse Resp BP Pulse Ox 05/10/19 07:44 36.6 C 94 H 16 128/75 97 05/10/19 07:37 113 H 18 90 05/10/19 07:11 36.5 C 84 20 130/82 97 05/10/19 02:13 36.6 C 89 18 136/84 96 05/09/19 23:00 37.3 C 86 18 121/68 98
--- NOTE | 2019-05-10 09:20 | Discharge Summary ---
Date of Service May 10, 2019 Discharge Data Consultations 05/09/19 09:27 Consult Case Management - Discharge Planning Routine Consult Hospitalist Routine Procedures Performed Operation Date: 05/09/19 07:00 Actual Procedures p Right 2nd Toe Amputation(Right) - Etienne Moon MD Hospital Course (1) Ulcer of right second toe: Patient was admitted to the [facility] on 05/09/19 after undergoing an elective right foot second toe amputation for non-healing ulcer and suspected osteomyelitis. His surgery was performed with spinal anesthesia and peripheral nerve block. He tolerated the procedure well without complications. He was given IV Vancomycin and IV Ancef for surgical prophyl axis, both of which were continued for 24 hours post operatively. Post- operatively he was allowed out of bed, weight bear as tolerated right foot with post op shoe on right foot and assistance of a walker. He was given a regular Pureed diet. He tolerated his diet well during his inpatient stay. Vitals remained stable. Pain was well controlled. Dressings remained intact and will plan for post operative dressing changes as an outpatient. Intra-operative cultures were taken and showed no organisms and no growth but final results were pending at time of discharge. A hospitalist was consulted for post operative medical management. His Eliquis was started the evening of surgery. case management was consulted for arrangements back to [facility]. Post operative follow up was scheduled. Discharge instructions provided. He was discharged to [facility] on 05/10/19 in stable condition. Discharge Instructions as per EMR
--- NOTE | 2019-05-10 09:23 | Progress Note ---
DATE: 05/10/2019 Doing well. Pain controlled. He has been able to be out of bed, ambulate minimally and sit in the chair with assistance. He is afebrile. His vital signs are stable. His urine output is adequate. Medicine consultation is noted. Pathology and cultures are pending. His dressing is clean and dry. The toe is warm with capillary refill less than 2 seconds and the dressing is intact. No significant swelling. IMPRESSION: Right second toe ulcer/chronic wound with suspected osteomyelitis. PLAN: He is back on his Eliquis. He is stable for discharge. Follow up with us on Wednesday. Elevate, ice. He may weightbear as tolerated with walker. He ambulates minimally. Will discharge on doxycycline. If there are any problems with severe pain, swelling, fevers, tingling, numbness please return sooner. The dressing can be left intact and kept clean and dry. He will resume his regular medications.
--- NOTE | 2019-05-10 10:04 | Anesthesiology Progress Note ---
Date of Service May 10, 2019 Anesthesia Post Procedure Vital Signs Vital Signs: Temp Pulse Pulse Resp BP Pulse Ox 05/10/19 09:14 36.6 C 90 94 H 16 128/75 97 05/10/19 07:44 36.6 C 94 H 16 128/75 97 05/10/19 07:37 113 H 18 90 05/10/19 07:11 36.5 C 84 20 130/82 97 05/10/19 02:13 36.6 C 89 18 136/84 96 05/09/19 23:00 37.3 C 86 18 121/68 98 05/09/19 19:52 37.2 C 80 18 116/75 96 05/09/19 19:26 90 14 98 05/09/19 15:48 36.5 C 87 16 115/71 100 05/09/19 15:23 36.7 C 80 18 127/77 100 05/09/19 12:18 83 18 107/68 100 05/09/19 11:14 79 20 124/74 98 05/09/19 10:11 78 18 128/75 99 Pain Intensity Right 2nd Digit Toe: Pain Intensity: 0 Notes Mental Status: alert / awake / arousable and participated in evaluation Nausea / Vomiting: adequately controlled Pain: adequately controlled Airway Patency, RR, SpO2: stable & adequate BP & HR: stable & adequate Hydration State: stable & adequate
== END 2019-05-10 10:35 ==
LOC: ASU 04:48 → 3E 04:48

== ENCOUNTER 2020-07-20 06:00 | Observation (INO) ==
[2020-07-20] MEDS ORDERED: DEXAMETHASONE SOD INJ 10 MG/ML VIAL IV ONE (06:28)
[2020-07-20] MEDS ORDERED: SODIUM CHLORIDE 0.9% 500 ML IV SCH (06:30)
[2020-07-20 06:42] LABS: Basophils # (auto) 0.01 K/uL (0-0.2); Basophils % (auto) 0.2 %; Eosinophils # (auto) 0.21 K/uL (0-0.5); Eosinophils % (auto) 3.8 %; Hematocrit (blood only) 42.9 % (42-52); Hemoglobin 13.5 g/dL (14.0-18.0); Immature Granulocytes # (auto) 0.06 K/uL (0.00-0.02); Immature Granulocytes % (auto) 1.1 %; Lymphocytes # (auto) 0.54 K/uL (1.2-3.4); Lymphocytes % (auto) 9.8 %; Mean Corpuscular Hemoglobin 30.5 pg (25-34); Mean Corpuscular Hgb Conc 31.5 g/dL (32-36); Mean Corpuscular Volume 97.1 fL (80-100); Mean Platelet Volume 10.2 fL (7.4-10.4); Monocytes # (auto) 0.41 K/uL (0.11-0.59); Monocytes % (auto) 7.5 %; Neutrophils # (auto) 4.26 K/uL (1.4-6.5); Neutrophils % (auto) 77.6 %; Platelet Count 179 K/uL (130-400); RDW Coefficient of Variation 14.1 % (11.5-14.5); RDW Standard Deviation 50.2 fL (36.4-46.3); Red Blood Count 4.42 M/uL (4.7-6.1); White Blood Count 5.49 K/uL (4.8-10.8)
[2020-07-20 06:54] LABS: INR 1.1 (0.9-1.1); Partial Thromboplastin Time 28.5 Seconds (21.0-31.0); Prothrombin Time 11.6 Seconds (9.0-12.0)
[2020-07-20 07:15] LABS: Alanine Aminotransferase 28 U/L (12-78); Aspartate Aminotransferase 17 U/L (15-37); BUN Creatinine Ratio 41.4 (10-20); Blood Urea Nitrogen 60 mg/dl (7-18); Calcium 9.7 mg/dl (8.5-10.1); Carbon Dioxide 26 mmol/L (21-32); Chloride 110 mmol/L (98-107); Est GFR (African American) 49.5; Est GFR (Non-African American) 42.7; Glucose 104 mg/dl (70-99); Potassium 4.2 mmol/L (3.5-5.1); Sodium 142 mmol/L (136-145)
[2020-07-20 07:19] LABS: Albumin Globulin Ratio 0.8 (0.9-2); Alkaline Phosphatase 78 U/L (45-117); Bilirubin,Total 0.4 mg/dl (0.2-1); Globulin 3.7 gm/dl (2.5-4.0); Total Protein 6.7 gm/dl (6.4-8.2)
--- NOTE | 2020-07-20 07:28 | Emergency Department Note ---
History of Present Illness General Chief complaint: Choking Stated complaint: CHOKING SENSATION/DIFFICULTY SWALLOWING Time Seen by Provider: 07/20/20 06:24 Source: patient Mode of arrival: ambulatory Limitations: no limitations History of Present Illness Provider complaint: Unable to swallow This is an 89-year-old male who presents to the ED with a chief complaint of a sensation of choking for the past couple of days. He states that he is unable to eat his pured food. He can only swallow water. He states that he can even swallow milk because it causes him to choke. The patient has a mild cough trying to clear his throat but is unable to do so. The patient also states that his voice is different. He denies any pain in his throat. The patient resides at [facility]. He has no other complaints. Denies any shortness of breath. No fevers or recent illness. No chest pains or shortness of breath. Home Medications Home Medications Medication Instructions Recorded Confirmed Type acetaminophen 325 mg tablet 650 mg PO Q4 PRN tab MDD 3000mg 12/05/18 07/20/20 History acetaminophen 650 mg rectal 650 mg MT Q4 PRN MDD 3000mg 12/05/18 07/20/20 History suppository albuterol sulfate 2.5 mg INH Q6H PRN ml 12/05/18 07/20/20 History apixaban 2.5 mg tablet 2.5 mg PO BID 12/05/18 07/20/20 History bisacodyl 10 mg rectal suppository 10 mg MT DAILY PRN 12/05/18 07/20/20 History buspirone 5 mg tablet 5 mg PO BID 12/05/18 07/20/20 History cholecalciferol (vitamin D3) 50 2,000 units PO QAM 12/05/18 07/20/20 History mcg (2,000 unit) capsule escitalopram oxalate 10 mg tablet 15 mg PO QAM tab 12/05/18 07/20/20 History fentanyl 12 mcg/hr transdermal 1 patch TD Q72H 12/05/18 07/20/20 History patch fluticasone propionate 50 2 inh INHALATION QAM ea 12/05/18 07/20/20 History mcg/actuation blister powder for inhalation hydrocortisone 1 % topical cream 1 appln TOP Q12 PRN 12/05/18 07/20/20 History isosorbide mononitrate 60 mg 60 mg PO QAM 12/05/18 07/20/20 History tablet,extended release 24 hr magnesium hydroxide 400 mg/5 mL 30 ml PO DAILY PRN ml 12/05/18 07/20/20 History oral suspension ondansetron HCl 4 mg tablet 4 mg PO Q8H PRN tab 12/05/18 07/20/20 History pantoprazole 40 mg tablet,delayed 40 mg PO DAILY 12/05/18 07/20/20 History release polyethylene glycol 3350 17 17 gm PO QAM 12/05/18 07/20/20 History gram/dose oral powder tiotropium bromide 2.5 2 puffs INH QAM 12/05/18 07/20/20 History mcg/actuation mist for inhalation tramadol 50 mg tablet 25 mg PO TID PRN 12/05/18 07/20/20 History loperamide 2 mg capsule 2 mg PO Q4H PRN 12/19/18 07/20/20 History sodium chloride [Saline Mist] 1 spray INTRANASAL Q2H PRN 10/06/19 07/20/20 History tramadol 25 mg PO TID 10/06/19 07/20/20 History silodosin 8 mg capsule 8 mg PO QPM 10/23/19 07/20/20 History arginine 7 gram-glutamine 7 1 ea PO BID 30 Days #60 ea 07/18/20 07/20/20 Rx gram-calcium HMB 1.5 gram oral powder pack Saccharomyces boulardii [Florastor] 250 mg PO QAM 07/20/20 07/20/20 History amino ac-protein hydr-whey pro 1 ea PO BID 07/20/20 07/20/20 History [ProSource] ascorbic acid (vitamin C) 500 mg PO QAM 07/20/20 07/20/20 History cephalexin [Keflex] 500 mg PO QID 07/20/20 07/20/20 History selenium sulfide 1 applic TOPICAL 2XWK 07/20/20 07/20/20 History Allergies Allergy/AdvReac Type Severity Reaction Status Date / Time simvastatin Allergy Mild PER Verified 07/20/20 06:52 RECORDS- PATIENT DENIES amiodarone Allergy Unknown PER Verified 07/20/20 06:52 RECORDS- PATIENT DENIES hydrochlorothiazide AdvReac bradycardia Verified 07/20/20 06:52 metoprolol AdvReac Unknown Verified 07/20/20 06:52 HMG-CoA-R Inhibitors Allergy Unknown PER Uncoded 07/20/20 06:52 RECORDS- PATIENT DENIES Past Med/Surg History Medical History Afib Anxiety Aortic stenosis Per 04/2017 report: "Mild" aortic stenosis (but values: MG 22.8mmhg, SUZIE 0.99cm2) Atherosclerosis of aorta Atherosclerotic heart disease Atrial fibrillation on abixapan BPH (benign prostatic hyperplasia) Chronic back pain Chronic kidney disease, stage 3 Chronic respiratory failure with hypoxia Congestive heart failure COPD (chronic obstructive pulmonary disease) Dysphagia Gallbladder sludge Generalized abdominal pain GERD (gastroesophageal reflux disease) controlled HTN (hypertension) Mixed hyperlipidemia 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 without evidence of necrosis Obstructive sleep apnea no device - does not tolerate Osteoarthritis Osteoporosis Peripheral vascular disease Pulmonary fibrosis Pulmonary HTN RVSP 50-60mmhg per 2016 ECHO Restricted diet regular, pureed texture, thin consistency, liquidized puree Sick sinus syndrome Transient ischemic attack (TIA) per remote records; patient denies Weight loss Surgical History H/O arthroscopy of left knee H/O colectomy partial H/O rotator cuff surgery right History of amputation of toe Rt 2nd toe - 05/09/2019 [facility] Social History Smoking Status: Never smoker Hx Alcohol Use: No Hx Substance Use: No Preferred Language: [place] Communication Ability: Effective Visual Impairment: Limited Hearing Ability: Normal 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 Beliefs That Will Affect Care: None marital status: single Current Living Situation: Personal Care Facility and Other Current Living Situation Comment: skilled facility- [employer] current occupational status: retired Feels Safe at Home: Yes Assistive Devices: Walker and Wheelchair Review of Systems A total of 10 systems reviewed and were otherwise negative Physical Exam Vital Signs Vital Signs - 24 hr 07/20/20 06:10 07/20/20 06:34 07/20/20 07:00 Temperature 36.8 C Temperature Source Oral Pulse Rate 90 78 Pulse Rate from SpO2 Sensor 81 Respiratory Rate 30 H 19 Respiratory Effort / Characteristics Spontaneous SOB on Exertion Blood Pressure 145/103 H 145/85 H Blood Pressure Mean 117 90 Blood Pressure Position Semi-fowlers Pulse Oximetry 97 95 Oxygen Delivery Method Room Air Room Air Sepsis Recent Fever Within 48 Hours No Sepsis New/Unexplained Change in Mental Status No Sepsis Action Taken by Nursing No Action Required CONSTITUTIONAL/VITAL SIGNS: Reviewed / noted above. GENERAL: Non-toxic in appearance. INTEGUMENTARY: Warm, dry, and [place]. HEAD: Normocephalic. EYES: without scleral icterus or trauma. ENT/OROPHARYNX: clear and slightly dry. LYMPHADENOPATHY/NECK: Is supple without lymphadenopathy or meningismus. RESPIRATORY: Lungs clear and equal. Occasional stridor. CARDIOVASCULAR: Regular rate and rhythm. GI/ABDOMEN: Soft and nontender. No organomegaly or pulsatile mass. No rebound or guarding. Normal bowel sounds. EXTREMITIES: Warm and well perfused. BACK: No CVA tenderness. NEUROLOGICAL: Intact without focal deficits. PSYCHIATRIC: normal affect. MUSCULOSKELETAL: Normally developed with good muscle tone. TRIAGE NURSING DOCUMENTATION REVIEWED. Course Administered Medications Discontinued Medications Dexamethasone (Dexamethasone Sod Inj 10 Mg/Ml Vial) 10 mg IV NOW ONE Stop: 07/20/20 06:29 Last Admin: 07/20/20 06:42 Dose: 10 mg Documented by: [id number] Sodium Chloride (Nss) 500 mls @ 999 mls/hr IV .Q31M DANILO Stop: 07/20/20 07:00 Last Infusion: 07/20/20 07:17 Dose: 0 mls/hr Documented by: [id number] Admin: 07/20/20 06:42 Dose: 999 mls/hr Documented by: [id number] Medical Decision Making Differential Diagnosis Differential includes dysphagia, foreign body, infection, mass, dehydration Medical Records Attestation: I reviewed the patient's medical records. Home Medications Current Medication List: was personally reviewed by [email or web address] Laboratory Data Attestation: I reviewed the patient's lab results. Result diagrams: 07/20/20 06:20 07/20/20 06:20 Lab Results 07/20/20 07/20/20 07/20/20 Range/Units 06:20 06:20 06:20 WBC 5.49 (4.8-10.8) K/uL RBC 4.42 L (4.7-6.1) M/uL Hgb 13.5 L (14.0-18.0) g/dL Hct 42.9 (42-52) % MCV 97.1 (80-100) fL MCH 30.5 (25-34) pg MCHC 31.5 L (32-36) g/dL RDW Std Deviation 50.2 H (36.4-46.3) fL RDW Coeff of Adriel 14.1 (11.5-14.5) % Plt Count 179 (130-400) K/uL MPV 10.2 (7.4-10.4) fL Immature Gran % (Auto) 1.1 % Neut % (Auto) 77.6 % Lymph % (Auto) 9.8 % Andrew % (Auto) 7.5 % Eos % (Auto) 3.8 % Baso % (Auto) 0.2 % Neut # (Auto) 4.26 (1.4-6.5) K/uL Lymph # (Auto) 0.54 L (1.2-3.4) K/uL Andrew # (Auto) 0.41 (0.11-0.59) K/uL Eos # (Auto) 0.21 (0-0.5) K/uL Baso # (Auto) 0.01 (0-0.2) K/uL Immature Gran # (Auto) 0.06 H (0.00-0.02) K/uL PT 11.6 (9.0-12.0) Seconds INR 1.1 (0.9-1.1) APTT 28.5 (21.0-31.0) Seconds PTT Ratio 1.0 Sodium 142 (136-145) mmol/L Potassium 4.2 (3.5-5.1) mmol/L Chloride 110 H (98-107) mmol/L Carbon Dioxide 26 (21-32) mmol/L Anion Gap 5.0 (3-11) BUN 60 H (7-18) mg/dl Creatinine 1.44 H (0.6-1.4) mg/dl Est Cr Clr Drug Dosing Not Reportable Est GFR ( Amer) 49.5 Est GFR (Non-Af Amer) 42.7 BUN/Creatinine Ratio 41.4 H (10-20) Glucose 104 H (70-99) mg/dl Calcium 9.7 (8.5-10.1) mg/dl Total Bilirubin 0.4 (0.2-1) mg/dl AST 17 (15-37) U/L ALT 28 (12-78) U/L Alkaline Phosphatase 78 (45-117) U/L Total Protein 6.7 (6.4-8.2) gm/dl Albumin 3.0 L (3.4-5.0) gm/dl Globulin 3.7 (2.5-4.0) gm/dl Albumin/Globulin Ratio 0.8 L (0.9-2) Imaging Data Attestation: I personally reviewed and interpreted this imaging study as follows: My Impression: Chest x-ray: Cardiomegaly. No acute pathology. Radiologist's Impression: CT scan of the neck/soft tissue without contrast: Mild proximal thoracic esophageal wall prominence could be from reflux esophagitis. No food bolus identified in the pharynx are visualized upper thoracic esophagus. Nadir Nesbitt MD MDM Narrative The patient presents as above with difficulty swallowing and some upper airway stridor for the past couple of days. He reports that his voice seems to be different as well. He has not been able to eat or drink anything but water. He states that he typically uses a pured diet. He chokes on anything but water. The patient CBC was unremarkable. His BUN is 60 and his creatinine is 1.44. This is higher than a BUN of 40 on his previous studies. Chest x-ray did not show acute pathology. A CT scan of the soft tissue of the neck shows some mild prominence of the thoracic esophageal wall. This could be related to reflux esophagitis. Because the patient is having choking spells and difficulty swallowing anything but water and does not appear to be keeping up with his fluid intake with a BUN of 60, the patient will require further inpatient evaluation of his symptoms. I spoke with the hospitalist about this patient. The patient was given IV fluids 500 cc normal saline bolus. He was also given IV Decadron. Impression & Plan Dysphagia, Choking due to phlegm, Stridor, Acute dehydration, Esophagitis Discharge Plan Visit Data Chief Complaint: Choking Stated Complaint: CHOKING SENSATION/DIFFICULTY SWALLOWING ED Provider: Matt Gallardo Discharge Problem: Dysphagia, Choking due to phlegm, Stridor, Acute dehydration, Esophagitis Forms Stand Alone Forms: My [facility] [employer] [facility] Prescriptions Prescriptions: No Action Levy 7-7-1.5 gram powder in packet 1 ea PO BID 30 Days Qty: 60 RF: 6 acetaminophen 650 mg suppository 650 mg MT Q4 MDD 3000mg PRN (Reason: Fever) RF: 0 acetaminophen 325 mg tablet 650 mg PO Q4 MDD 3000mg PRN (Reason: Fever Or Pain) RF: 0 albuterol sulfate 2.5 mg /3 mL (0.083 %) solution for nebulization 2.5 mg INH Q6H PRN (Reason: sob/cough/wheeze) RF: 0 buspirone 5 mg tablet 5 mg PO BID RF: 0 bisacodyl [Dulcolax (bisacodyl)] 10 mg suppository 10 mg MT DAILY PRN (Reason: Constipation) RF: 0 apixaban [Eliquis] 2.5 mg tablet 2.5 mg PO BID RF: 0 escitalopram oxalate 10 mg tablet 15 mg PO QAM RF: 0 fentanyl 12 mcg/hr patch 72 hour 1 patch TD Q72H RF: 0 fluticasone propionate 50 mcg/actuation blister with device 2 inh inhalation QAM RF: 0 hydrocortisone [Anti-Itch (HC)] 1 % cream 1 appln TOP Q12 PRN (Reason: leg rash) RF: 0 isosorbide mononitrate 60 mg tablet extended release 24 hr 60 mg PO QAM RF: 0 magnesium hydroxide [Milk of Magnesia] 400 mg/5 mL suspension 30 ml PO DAILY PRN (Reason: Constipation) RF: 0 polyethylene glycol 3350 [Miralax] 17 gram/dose powder 17 gm PO QAM RF: 0 pantoprazole 40 mg tablet,delayed release (DR/EC) 40 mg PO DAILY RF: 0 tiotropium bromide [Spiriva Respimat] 2.5 mcg/actuation mist 2 puffs INH QAM RF: 0 tramadol 50 mg tablet 25 mg PO TID PRN (Reason: Pain) RF: 0 cholecalciferol (vitamin D3) 2,000 unit capsule 2,000 units PO QAM RF: 0 ondansetron HCl [Zofran] 4 mg tablet 4 mg PO Q8H PRN (Reason: Nausea) RF: 0 loperamide [Anti-Diarrheal (loperamide)] 2 mg capsule 2 mg PO Q4H PRN (Reason: diarrhea) RF: 0 silodosin [Rapaflo] 8 mg capsule 8 mg PO QPM RF: 0 tramadol 50 mg Tablet 25 mg PO TID RF: 0 sodium chloride [Saline Mist] 0.65 % Aerosol,[place] 1 spray INTRANASAL Q2H PRN (Reason: dryness) RF: 0 ascorbic acid (vitamin C) 500 mg Tablet 500 mg PO QAM RF: 0 selenium sulfide 2.25 % Shampoo 1 applic TOPICAL 2XWK RF: 0 cephalexin [Keflex] 500 mg Capsule 500 mg PO QID RF: 0 Saccharomyces boulardii [Florastor] 250 mg Capsule 250 mg PO QAM RF: 0 ProSource 10-100 gram-kcal/30 mL Liquid 1 ea PO BID RF: 0 Discharge Problem: Dysphagia Qualifiers: Dysphagia type: unspecified Qualified Code(s): R13.10 - Dysphagia, unspecified Choking due to phlegm Qualifiers: Encounter type: initial encounter Qualified Code(s): T17.310A - Gastric contents in larynx causing asphyxiation, initial encounter
--- NOTE | 2020-07-20 08:29 | XRay Report ---
XR chest 1V portable CLINICAL HISTORY: Dyspnea COMPARISON STUDY: August 19, 2016 FINDINGS: The heart remains enlarged with aortic tortuosity/ectasia. There is no focal pulmonary cons olidation. No pleural effusions are visualized. Advanced arthritic changes are present within the rig ht shoulder.[ IMPRESSION: 1. Cardiomegaly and resolving pulmonary vascular congestion. No pleural effusions identified on the c urrent study. 2. No evidence of focal pulmonary consolidation ACT 112: Negative or not required by law. Electronically signed by: Mickey Mejia M.D. 07/20/2020 8:28 AM
--- NOTE | 2020-07-20 08:59 | CT Scan Report ---
CT soft tissue neck wo con HISTORY: trouble swallowing/choking sensation TECHNIQUE: Multiaxial CT images of the neck were performed without the use of intravenous contrast. COMPARISON STUDY: None. FINDINGS: The visualized brain parenchyma and orbits are within normal limits. The pterygopalatine fo ssa and paratracheal fat spaces are maintained. The major mucosal airways services are intact. Prever tebral soft tissues and the epiglottis are normal in thickness. Moderate calcified plaque within the bilateral carotid bifurcations. The parotid and submandibular glands are symmetric. No cervical lymph adenopathy. No masses or fluid collections identified on this noncontrast study. Mild right posterior pleural thickening. This is partially visualized on this study. The visualized paranasal sinuses and mastoid air cells are clear. No suspicious lytic or blastic osseous lesions. No radiopaque foreign b odies or food bolus within the pharynx. IMPRESSION: 1. No radiopaque foreign bodies or fluid bolus identified within the pharynx. 2. No masses, lymphadenopathy or fluid collections identified on this noncontrast study. ACT 112: Negative or not required by law. Electronically signed by: Pete Thomson M.D. 07/20/2020 8:58 AM
[2020-07-20] MEDS ORDERED: ACETAMINOPHEN 325 MG TAB PO PRN (10:01)
[2020-07-20] MEDS ORDERED: ALBUTEROL 0.083% NEBU SOLN 3 ML VIAL INH PRN (10:01)
[2020-07-20] MEDS ORDERED: ONDANSETRON INJ 2 MG/ML 2 ML VIAL IV PRN (10:01)
[2020-07-20] MEDS ORDERED: FLUTICASONE FUROATE 100MCG 14 PUFFS/INHALER INH SCH (10:30)
[2020-07-20] MEDS ORDERED: fentaNYL 12 MCG/HR TDSY TD SCH (11:00)
[2020-07-20] MEDS: CEFAZOLIN 1,000 MG in SYRINGE 0 ML IV SCH ×2 (11:13→22:58)
[2020-07-20] MEDS: SODIUM CHLORIDE 0.9% 1000ML 1,000 ML IV SCH ×3 (11:29→23:59)
[2020-07-20] MEDS: ESCITALOPRAM OXALATE 10 MG TAB PO SCH (11:51)
[2020-07-20] MEDS: PANTOprazole 40 MG TAB PO SCH (11:53)
[2020-07-20] MEDS: ISOSORBIDE MONO EXTENDED REL 60 MG TABCR PO SCH (11:53)
[2020-07-20] MEDS: FLUTICASONE PROPIONATE NA SPR 16 GM BTL SCH (12:52)
[2020-07-20] MEDS: UMECLIDINIUM BROMIDE 62.5MCG/BLISTER 7 PUFFS/INHALER INH SCH (12:53)
--- NOTE | 2020-07-20 13:30 | History & Physical Report ---
Date of Service July 20, 2020 Assessment & Plan (1) Dysphagia: ongoing for 2 months appears to be issue of transitioning food to back of throat and initiating swallow no pain, no weight loss he coughs a lot after trying to eat and drink, no pneumonia on CXR will consult speech therapy to evaluate at the bedside, anticipate he will need a video swallow will check MRI brain to rule out stroke another thought would be CT chest to rule out mediastinal lesion affecting recurrent laryngeal nerve but not sure that would affect swallowing, just vocal cords (2) Acute dehydration: appears a little dry, BUN and Cr are slightly raised but this would not be KORI will give fluids today and tomorrow morning repeat BMP (3) 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 will start Lovenox tomorrow (8) COPD (chronic obstructive pulmonary disease): (9) HTN (hypertension): Admission and Anticipated Discharge Date Admission Date: July 20, 2020 History of Present Illness Chief Complaint: I cannot swallow Primary Care Provider: [facility] 89 yo male with history of chronic afib, hypertension, chronic pain, GERD who presents with worsening dysphagia over the past two months. All the history obtained from the patient. He says that two months ago he noticed that he was having a hard time swallowing, to his recollection this is the first time he had this issue. He required a pureed diet at [facility]. He describes taking a bite but he cannot get food to get to the back of his throat to swallow. He describes it as having to "slurp" or suck it down his throat. Explains that he will even use his hand to squeeze on his neck and help force food and liquids back. He feels like he is choking and coughing, has a difficult time coughing up fluids that he may aspirate. He denies any painful sensation when swallowing. There is no sensation of food getting stuck further down in his chest, all the issues seem to be in the throat and initiating a swallow. He also says his voice has changed, it is deeper, denies that it is hoarse. He has not had any weight loss and he continues to move his bowels so he is able to get in enough food to maintain his weight. There was no acute issue that triggered sending him to the ED, it was that it was not getting better. Lab work generally stable but BUN and Cr a little higher than normal. CT neck/soft tissues showed no masses, no lymphadenopathy, no foreign bodies, the study was without contrast. CXR showed mild pulmonary edema, no infiltrate. Allergies Allergy/AdvReac Type Severity Reaction Status Date / Time simvastatin Allergy Mild PER Verified 07/20/20 06:52 RECORDS- PATIENT DENIES amiodarone Allergy Unknown PER Verified 07/20/20 06:52 RECORDS- PATIENT DENIES hydrochlorothiazide AdvReac bradycardia Verified 07/20/20 06:52 metoprolol AdvReac Unknown Verified 07/20/20 06:52 HMG-CoA-R Inhibitors Allergy Unknown PER Uncoded 07/20/20 06:52 RECORDS- PATIENT DENIES Home Medications Home Medications Medication Instructions Recorded Confirmed Type acetaminophen 325 mg tablet 650 mg PO Q4 PRN tab MDD 3000mg 12/05/18 07/20/20 History acetaminophen 650 mg rectal 650 mg CA Q4 PRN MDD 3000mg 12/05/18 07/20/20 History suppository albuterol sulfate 2.5 mg INH Q6H PRN ml 12/05/18 07/20/20 History apixaban 2.5 mg tablet 2.5 mg PO BID 12/05/18 07/20/20 History bisacodyl 10 mg rectal suppository 10 mg CA DAILY PRN 12/05/18 07/20/20 History buspirone 5 mg tablet 5 mg PO BID 12/05/18 07/20/20 History cholecalciferol (vitamin D3) 50 2,000 units PO QAM 12/05/18 07/20/20 History mcg (2,000 unit) capsule escitalopram oxalate 10 mg tablet 15 mg PO QAM tab 12/05/18 07/20/20 History fentanyl 12 mcg/hr transdermal 1 patch TD Q72H 12/05/18 07/20/20 History patch fluticasone propionate 50 2 inh INHALATION QAM ea 12/05/18 07/20/20 History mcg/actuation blister powder for inhalation hydrocortisone 1 % topical cream 1 appln TOP Q12 PRN 12/05/18 07/20/20 History isosorbide mononitrate 60 mg 60 mg PO QAM 12/05/18 07/20/20 History tablet,extended release 24 hr magnesium hydroxide 400 mg/5 mL 30 ml PO DAILY PRN ml 12/05/18 07/20/20 History oral suspension ondansetron HCl 4 mg tablet 4 mg PO Q8H PRN tab 12/05/18 07/20/20 History pantoprazole 40 mg tablet,delayed 40 mg PO DAILY 12/05/18 07/20/20 History release polyethylene glycol 3350 17 17 gm PO QAM 12/05/18 07/20/20 History gram/dose oral powder tiotropium bromide 2.5 2 puffs INH QAM 12/05/18 07/20/20 History mcg/actuation mist for inhalation tramadol 50 mg tablet 25 mg PO TID PRN 12/05/18 07/20/20 History loperamide 2 mg capsule 2 mg PO Q4H PRN 12/19/18 07/20/20 History sodium chloride [Saline Mist] 1 spray INTRANASAL Q2H PRN 10/06/19 07/20/20 History tramadol 25 mg PO TID 10/06/19 07/20/20 History silodosin 8 mg capsule 8 mg PO QPM 10/23/19 07/20/20 History arginine 7 gram-glutamine 7 1 ea PO BID 30 Days #60 ea 07/18/20 07/20/20 Rx gram-calcium HMB 1.5 gram oral powder pack Saccharomyces boulardii [Florastor] 250 mg PO QAM 07/20/20 07/20/20 History amino ac-protein hydr-whey pro 1 ea PO BID 07/20/20 07/20/20 History [ProSource] ascorbic acid (vitamin C) 500 mg PO QAM 07/20/20 07/20/20 History cephalexin [Keflex] 500 mg PO QID 07/20/20 07/20/20 History selenium sulfide 1 applic TOPICAL 2XWK 07/20/20 07/20/20 History Past Med/Surg History Medical History Afib Anxiety Aortic stenosis Per 04/2017 report: "Mild" aortic stenosis (but values: MG 22.8mmhg, SUZIE 0.99cm2) Atherosclerosis of aorta Atherosclerotic heart disease Atrial fibrillation on abixapan BPH (benign prostatic hyperplasia) Chronic back pain Chronic kidney disease, stage 3 Chronic respiratory failure with hypoxia Congestive heart failure COPD (chronic obstructive pulmonary disease) Dysphagia Gallbladder sludge Generalized abdominal pain GERD (gastroesophageal reflux disease) controlled HTN (hypertension) Mixed hyperlipidemia 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 without evidence of necrosis Obstructive sleep apnea no device - does not tolerate Osteoarthritis Osteoporosis Peripheral vascular disease Pulmonary fibrosis Pulmonary HTN RVSP 50-60mmhg per 2017 ECHO Restricted diet regular, pureed texture, thin consistency, liquidized puree Sick sinus syndrome Transient ischemic attack (TIA) per remote records; patient denies Weight loss Surgical History H/O arthroscopy of left knee H/O colectomy partial H/O rotator cuff surgery right History of amputation of toe Rt 2nd toe - 05/09/2019 [facility] Social History Smoking Status: Former smoker Second Hand Exposure: No; Do You Dip or Chew Tobacco: No; Tobacco Cessation Education Requested by Patient: No Hx Alcohol Use: No Hx Substance Use: No Preferred Language: Somali Communication Ability: Effective Visual Impairment: Limited Hearing Ability: Normal 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 Beliefs That Will Affect Care: None marital status: single Current Living Situation: Personal Care Facility Current Living Situation Comment: Resides at [facility] current occupational status: retired Other Information That Helps Us Care for You: No Feels Safe at Home: Yes Safety Concerns: Feels Safe At This Time Assistive Devices: Walker Review of Systems Review of Systems: All systems reviewed & are unremarkable except as noted in Subjective Physical Exam Constitutional: well developed, well nourished, average body habitus and + frail appearing; no acute distress Eyes: PERRL, conjunctivae normal, anicteric sclerae ENMT: external ear and nose normal, oropharynx normal Neck: trachea midline, no thyromegaly Respiratory: normal respiratory effort, lungs clear to auscultation Cardiovascular: RRR, no murmur, no edema Gastrointestinal (Abdomen): normal bowel sounds, soft, nontender, no hepatosplenomegaly Musculoskeletal: no cyanosis or clubbing, extremities motor strength 5/5 Extremities: + muscle atrophy (arms, legs, hands, feet) Skin: no rashes, warm and dry Neurologic: patellar DTR's 2+ bilat, sensation intact and PERRL, EOMI, accommodation nl, no face palsy, no dysarthria Psychiatric: A+Ox3, euthymic affect Lymphatic: no cervical or axillary lymphadenopathy Results & Data Results & Data ([place]) Vital Signs (Past 12 Hours) Vital Signs Temp Pulse Pulse Resp BP BP Pulse Ox 07/20/20 10:06 36.4 C L 88 26 H 153/93 H 94 07/20/20 09:00 64 16 148/94 H 95 07/20/20 08:01 79 16 156/94 H 94 07/20/20 07:00 78 19 145/85 H 95 07/20/20 06:10 36.8 C 90 30 H 145/103 H 97 Laboratory Results Laboratory Results - last 24 hr 07/20/20 07/20/20 07/20/20 06:20 06:20 06:20 WBC 5.49 RBC 4.42 L Hgb 13.5 L Hct 42.9 MCV 97.1 MCH 30.5 MCHC 31.5 L RDW Std Deviation 50.2 H RDW Coeff of Adriel 14.1 Plt Count 179 MPV 10.2 Immature Gran % (Auto) 1.1 Neut % (Auto) 77.6 Lymph % (Auto) 9.8 Swisher % (Auto) 7.5 Eos % (Auto) 3.8 Baso % (Auto) 0.2 Neut # (Auto) 4.26 Lymph # (Auto) 0.54 L Swisher # (Auto) 0.41 Eos # (Auto) 0.21 Baso # (Auto) 0.01 Immature Gran # (Auto) 0.06 H PT 11.6 INR 1.1 APTT 28.5 PTT Ratio 1.0 Sodium 142 Potassium 4.2 Chloride 110 H Carbon Dioxide 26 Anion Gap 5.0 BUN 60 H Creatinine 1.44 H Est Cr Clr Drug Dosing Not Reportable Est GFR ( Amer) 49.5 Est GFR (Non-Af Amer) 42.7 BUN/Creatinine Ratio 41.4 H Glucose 104 H Calcium 9.7 Total Bilirubin 0.4 AST 17 ALT 28 Alkaline Phosphatase 78 Total Protein 6.7 Albumin 3.0 L Globulin 3.7 Albumin/Globulin Ratio 0.[address] neck: no acute changes, no mass, no adenopathy, no foreign bodies CXR: mild pulmonary edema, no new changes Medications Administered Current Inpatient Medications Acetaminophen (Acetaminophen 325 Mg Tab) 650 mg PO Q4H PRN PRN Reason: pain/fever Stop: 08/19/20 10:00 Albuterol (Albuterol 0.083% Nebu Soln 3 Ml Vial) 2.5 mg INH Q6H PRN PRN Reason: sob/cough/wheeze Stop: 08/19/20 10:00 Buspirone HCl (Buspirone 5 Mg Tab) 5 mg PO BID [facility] Stop: 08/19/20 10:00 Last Admin: 07/20/20 11:53 Dose: 5 mg Documented by: Escitalopram Oxalate (Escitalopram Oxalate 10 Mg Tab) 15 mg PO [facility] Stop: 08/19/20 10:00 Last Admin: 07/20/20 11:51 Dose: 15 mg Documented by: Fentanyl (Fentanyl 12 Mcg/Hr Tdsy) 12 mcg TD Q72H [facility] Stop: 08/03/20 10:59 Last Admin: 07/20/20 11:15 Dose: 12 mcg Documented by: Fluticasone Propionate (Fluticasone Propionate Na Spr 16 Gm Btl) 2 sprays NA [facility] Stop: 08/19/20 10:29 Last Admin: 07/20/20 12:52 Dose: 2 sprays Documented by: Cefazolin Sodium 1,000 mg/ (Syringe) 7.5 mls @ 2.5 mls/min IV Q12H [facility]; Protocol Stop: 07/27/20 10:59 Last Admin: 07/20/20 11:13 Dose: 2.5 mls/min Documented by: Sodium Chloride (Nss 1000ml) 1,000 mls @ 80 mls/hr IV .[id number] [facility] Stop: 08/19/20 10:00 Last Admin: 07/20/20 11:29 Dose: 80 mls/hr Documented by: Isosorbide Mononitrate (Isosorbide [place] Extended Rel 60 Mg Tabcr) 60 mg PO [facility] Stop: 08/19/20 10:00 Last Admin: 07/20/20 11:53 Dose: 60 mg Documented by: Miscellaneous (Fentanyl Patch Remove & Waste) 1 ea N/A Q72H [facility] Stop: 08/19/20 10:58 Last Admin: 07/20/20 11:16 Dose: 1 ea Documented by: Miscellaneous (Check Fentanyl Patch Placement) 1 ea N/A QS [facility] Stop: 08/19/20 15:59 Ondansetron HCl (Ondansetron Inj 2 Mg/Ml 2 Ml Vial) 4 mg IV Q6H PRN PRN Reason: Nausea Stop: 08/19/20 10:00 Pantoprazole Sodium (Pantoprazole 40 Mg Tab) 40 mg PO DAILY [facility] Stop: 08/19/20 10:00 Last Admin: 07/20/20 11:53 Dose: 40 mg Documented by: Tamsulosin HCl (Tamsulosin Hcl 0.4 Mg Cap) 0.4 mg PO QPM [facility]; Protocol Stop: 08/19/20 20:59 Umeclidinium [place] (Umeclidinium [place] 62.5mcg/Blister 7 Puffs/Inhaler) 1 puffs INH QAM [facility]; Protocol Stop: 08/19/20 10:29 Last Admin: 07/20/20 12:53 Dose: 1 puffs Documented by: Code Status & VTE Plan VTE Prophylaxis Plan VTE Prophylaxis will be ordered: Yes PG Care Time/CCT Total # of Minutes Spent Total Time Spent with Patient: Total time spent is greater than 50% in coordination of care (as documented) at patient's floor/unit and/or counseling patient: Coding Level of Care Code 93802 OBS Care - Level 3 Diagnoses Dysphagia R13.10 Dysphagia type: unspecified Acute dehydration E86.0 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
[2020-07-20] MEDS: CHECK FENTANYL PATCH PLACEMENT SCH (16:20)
[2020-07-20] MEDS ORDERED: GADOBUTROL 65ML VIAL IV ONE (17:06)
--- NOTE | 2020-07-20 17:16 | Magnetic Resonance Report ---
Brain MRI WITH AND WITHOUT CONTRAST HISTORY: dysphagia, rule out recent stroke TECHNIQUE: Multiplanar multisequence MRI of the brain was performed both before and after the intrave nous administration of contrast. COMPARISON STUDY: Head CT 08/19/2016. Brain MRI 11/15/2015. FINDINGS: There is no mass, hematoma, midline shift, or acute infarct. The paranasal sinuses are cheryl r. The mastoid air cells are clear. The ventricles and sulci demonstrate moderate to severe age-relat ed involutional changes. Scattered foci of T2 hyperintensity seen within the periventricular and subc ortical white matter are nonspecific but suggestive of moderate to severe microvascular ischemic mcmillan ges. The major vascular flow voids at the skull base are well-maintained. No abnormal enhancement. Ol d lacunar infarct within the left cerebellar hemisphere. IMPRESSION: No acute intracranial abnormality. Advanced atrophy and microvascular ischemic changes. ACT 112: Negative or not required by law. Electronically signed by: Pete Thomson M.D. 07/20/2020 5:15 PM
[2020-07-20] MEDS: TAMSULOSIN HCL 0.4 MG CAP PO SCH (21:03)
[2020-07-21] MEDS: CHECK FENTANYL PATCH PLACEMENT SCH ×4 (00:13→23:40)
[2020-07-21 05:54] LABS: Hematocrit (blood only) 38.6 % (42-52); Hemoglobin 12.1 g/dL (14.0-18.0); Mean Corpuscular Hemoglobin 30.8 pg (25-34); Mean Corpuscular Hgb Conc 31.3 g/dL (32-36); Mean Corpuscular Volume 98.2 fL (80-100); Mean Platelet Volume 10.4 fL (7.4-10.4); Platelet Count 164 K/uL (130-400); Red Blood Count 3.93 M/uL (4.7-6.1); White Blood Count 5.95 K/uL (4.8-10.8)
[2020-07-21 06:31] LABS: BUN Creatinine Ratio 40.5 (10-20); Calcium 8.5 mg/dl (8.5-10.1); Creatinine Clr Calc Pharmacy 35.8 ml/min; Est GFR (African American) 61.1; Est GFR (Non-African American) 52.8; Potassium 4.2 mmol/L (3.5-5.1)
[2020-07-21] MEDS: ISOSORBIDE MONO EXTENDED REL 60 MG TABCR PO SCH (08:09)
[2020-07-21] MEDS: ESCITALOPRAM OXALATE 10 MG TAB PO SCH (08:09)
[2020-07-21] MEDS: PANTOprazole 40 MG TAB PO SCH (08:09)
[2020-07-21] MEDS: FLUTICASONE PROPIONATE NA SPR 16 GM BTL SCH (08:10)
[2020-07-21] MEDS: UMECLIDINIUM BROMIDE 62.5MCG/BLISTER 7 PUFFS/INHALER INH SCH (08:10)
[2020-07-21] MEDS: CEFAZOLIN 1,000 MG in SYRINGE 0 ML IV SCH ×2 (09:13→16:35)
[2020-07-21] MEDS ORDERED: ENOXAPARIN 1 MG/KG SQ SCH (11:00)
[2020-07-21] MEDS ORDERED: ENOXAPARIN INJ 60 MG/0.6 ML SYR SQ SCH (11:30)
--- NOTE | 2020-07-21 15:54 | Hospitalist Progress Note ---
Date of Service July 21, 2020 Assessment & Plan (1) Dysphagia: ongoing for 2 months appears to be issue of transitioning food to back of throat and initiating swallow no pain, no weight loss he coughs a lot after trying to eat and drink, no pneumonia on CXR will consult speech therapy to evaluate at the bedside no suspicion of aspiration, no need for video swallow suspect worsening esophageal dysmotility, recommend PPI slippery diet, alternate solids and liquids HOB >30 degrees, upright and alert when eating, stay upright for 30 minutes after eating will check MRI brain to rule out stroke - no evidence of acute or prior stroke plan to send back to [facility] tomorrow, can follow up with gastroenterology in the office about esophageal dysmotility consult PT/OT, will probably need COVID test prior to returning (2) Acute dehydration: appears a little dry on admission, BUN and Cr are slightly raised but this would not be KORI BUN and Cr down after some fluids, will stop fluids eating and drinking well (3) 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, stage 3: follows with wound care will change Keflex to Ancef while here to try to limit what medications he has to take by mouth resume Keflex on discharge (4) PAD (peripheral artery disease): (5) Gastropathy: Protonix, follows with [facility] (6) Chronic kidney disease: BUN and Cr mildly elevated from prior values, just some dehydration (7) Afib: rates controlled, on Eliquis 2.5mg BID, resume in the morning as no plans for procedure (8) COPD (chronic obstructive pulmonary disease): (9) HTN (hypertension): Admission and Anticipated Discharge Date Admission Date: July 21, 2020 Subjective patient feeling better today, he says he is eating better he was seen by speech therapy today, he did quite well with pureed diet, no clear aspiration suspect that he has esophageal dysmotility, does not need a video swallow study as was anticipated recommend PPI plan to discharge back to [facility] tomorrow get PT/OT, likely will need a COVID test prior to going back Review of Systems Review of Systems: All systems reviewed & are unremarkable except as noted in Subjective Gastrointestinal: + dysphagia Physical Exam Constitutional: well developed, well nourished, average body habitus and + frail appearing; no acute distress Eyes: PERRL, conjunctivae normal, anicteric sclerae ENMT: external ear and nose normal, oropharynx normal Neck: trachea midline, no thyromegaly Respiratory: normal respiratory effort, lungs clear to auscultation Cardiovascular: RRR, no murmur, no edema Gastrointestinal (Abdomen): normal bowel sounds, soft, nontender, no hepatosplenomegaly Musculoskeletal: no cyanosis or clubbing, extremities motor strength 5/5 Extremities: + muscle atrophy (arms, legs, hands, feet) Skin: no rashes, warm and dry Neurologic: patellar DTR's 2+ bilat, sensation intact and PERRL, EOMI, accommodation nl, no face palsy, no dysarthria Psychiatric: A+Ox3, euthymic affect Lymphatic: no cervical or axillary lymphadenopathy Results & Data Results & Data ([facility]) Vital Signs (Past 12 Hours) Vital Signs Temp Pulse Resp BP Pulse Ox 07/21/20 15:42 36.6 C 79 17 137/79 96 07/21/20 08:37 36.5 C 84 17 147/71 H 92 Laboratory Results Laboratory Results - last 24 hr 07/21/20 07/21/20 05:25 05:25 WBC 5.95 RBC 3.93 L Hgb 12.1 L Hct 38.6 L MCV 98.2 MCH 30.8 MCHC 31.3 L RDW Std Deviation 50.0 H RDW Coeff of Adriel 14.0 Plt Count 164 MPV 10.4 Sodium 143 Potassium 4.2 Chloride 116 H Carbon Dioxide 23 Anion Gap 4.0 BUN 49 H Creatinine 1.21 Est Cr Clr Drug Dosing 35.8 Est GFR ( Amer) 61.1 Est GFR (Non-Af Amer) 52.8 BUN/Creatinine Ratio 40.5 H Glucose 134 H Calcium 8.5 Medications Administered Current Inpatient Medications Acetaminophen (Acetaminophen 325 Mg Tab) 650 mg PO Q4H PRN PRN Reason: pain/fever Stop: 08/19/20 10:00 Albuterol (Albuterol 0.083% Nebu Soln 3 Ml Vial) 2.5 mg INH Q6H PRN PRN Reason: sob/cough/wheeze Stop: 08/19/20 10:00 Buspirone HCl (Buspirone 5 Mg Tab) 5 mg PO BID [facility] Stop: 08/19/20 10:00 Last Admin: 07/21/20 20:34 Dose: 5 mg Documented by: Enoxaparin Sodium (Enoxaparin Inj 60 Mg/0.6 Ml Syr) 60 mg SQ Q12H [facility] Stop: 08/20/20 11:29 Last Admin: 07/21/20 11:59 Dose: 60 mg Documented by: Escitalopram Oxalate (Escitalopram Oxalate 10 Mg Tab) 15 mg PO QAM [facility] Stop: 08/19/20 10:00 Last Admin: 07/21/20 08:09 Dose: 15 mg Documented by: Fentanyl (Fentanyl 12 Mcg/Hr Tdsy) 12 mcg TD Q72H [facility] Stop: 08/03/20 10:59 Last Admin: 07/20/20 11:15 Dose: 12 mcg Documented by: Fluticasone Propionate (Fluticasone Propionate Na Spr 16 Gm Btl) 2 sprays [facility] Stop: 08/19/20 10:29 Last Admin: 07/21/20 08:10 Dose: 2 sprays Documented by: Cefazolin Sodium 1,000 mg/ (Syringe) 7.5 mls @ 2.5 mls/min IV Q8H [facility]; Protocol Stop: 07/27/20 10:59 Last Admin: 07/21/20 16:35 Dose: 2.5 mls/min Documented by: Isosorbide Mononitrate (Isosorbide [place] Extended Rel 60 Mg Tabcr) 60 [facility] Stop: 08/19/20 10:00 Last Admin: 07/21/20 08:09 Dose: 60 mg Documented by: Miscellaneous (Fentanyl Patch Remove & Waste) 1 ea N/A Q72H [facility] Stop: 08/19/20 10:58 Last Admin: 07/20/20 11:16 Dose: 1 ea Documented by: Miscellaneous (Check Fentanyl Patch Placement) 1 ea N/A QS [facility] Stop: 08/19/20 15:59 Last Admin: 07/21/20 16:35 Dose: 1 ea Documented by: Ondansetron HCl (Ondansetron Inj 2 Mg/Ml 2 Ml Vial) 4 mg IV Q6H PRN PRN Reason: Nausea Stop: 08/19/20 10:00 Pantoprazole Sodium (Pantoprazole 40 Mg Tab) 40 mg PO DAILY [facility] Stop: 08/19/20 10:00 Last Admin: 07/21/20 08:09 Dose: 40 mg Documented by: Tamsulosin HCl (Tamsulosin Hcl 0.4 Mg Cap) 0.4 mg PO QPM [facility]; Protocol Stop: 08/19/20 20:59 Last Admin: 07/21/20 20:34 Dose: 0.4 mg Documented by: Umeclidinium [place] (Umeclidinium [place] 62.5mcg/Blister 7 Puffs/Inhaler) 1 puffs INH QAM [facility]; Protocol Stop: 08/19/20 10:29 Last Admin: 07/21/20 08:10 Dose: 1 puffs Documented by: PG Care Time/CCT Total # of Minutes Spent Total Time Spent with Patient: Total time spent is greater than 50% in coordination of care (as documented) at patient's floor/unit and/or counseling patient: Coding Level of Care Code 80450 Subseq Hosp Care Lvl 2 Diagnoses Dysphagia R13.10 Dysphagia type: unspecified Acute dehydration E86.0 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
[2020-07-21] MEDS: TAMSULOSIN HCL 0.4 MG CAP PO SCH (20:34)
[2020-07-22] MEDS: CEFAZOLIN 1,000 MG in SYRINGE 0 ML IV SCH ×2 (01:02→08:25)
--- NOTE | 2020-07-22 08:18 | Hospitalist Progress Note ---
Date of Service July 22, 2020 Assessment & Plan (1) Dysphagia: ongoing for 2 months appears to be issue of transitioning food to back of throat and initiating swallow no pain, no weight loss he coughs a lot after trying to eat and drink, no pneumonia on CXR Ct soft tissue of neck IMPRESSION: 1. No radiopaque foreign bodies or fluid bolus identified within the pharynx. 2. No masses, lymphadenopathy or fluid collections identified on this noncontrast study. will consult speech therapy to evaluate at the bedside no suspicion of aspiration, no need for video swallow suspect worsening esophageal dysmotility, recommend PPI slippery diet, alternate solids and liquids HOB >30 degrees, upright and alert when eating, stay upright for 30 minutes after eating MRI brain IMPRESSION: No acute intracranial abnormality. Advanced atrophy and microvascular ischemic changes. 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, stage 3: follows with wound care will change Keflex to Ancef while here to try to limit what medications he has to take by mouth resume Keflex on discharge (4) PAD (peripheral artery disease): (5) Gastropathy: Protonix, follows with [facility] (6) Chronic kidney disease: BUN and Cr mildly elevated from prior values, just some dehydration (7) Afib: rates controlled, on Eliquis 2.5mg BID, resume in the morning as no plans for procedure (8) COPD (chronic obstructive pulmonary disease): (9) HTN (hypertension): Admission and Anticipated Discharge Date Admission Date: July 21, 2020 Results & Data Results & Data ([facility]) Vital Signs (Past 12 Hours) Vital Signs Temp Pulse Resp BP Pulse Ox 07/22/20 07:52 98.1 F 82 18 166/79 H 97 07/22/20 00:05 97.5 F L 90 18 133/86 97 PG Care Time/CCT Total # of Minutes Spent Total Time Spent with Patient: Total time spent is greater than 50% in coordination of care (as documented) at patient's floor/unit and/or counseling patient: Coding Diagnoses Dysphagia R13.10 Dysphagia type: unspecified Acute dehydration E86.0 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
[2020-07-22] MEDS: CHECK FENTANYL PATCH PLACEMENT SCH (08:19)
[2020-07-22] MEDS: UMECLIDINIUM BROMIDE 62.5MCG/BLISTER 7 PUFFS/INHALER INH SCH (08:20)
[2020-07-22] MEDS: ESCITALOPRAM OXALATE 10 MG TAB PO SCH (08:21)
[2020-07-22] MEDS: FLUTICASONE PROPIONATE NA SPR 16 GM BTL SCH (08:22)
[2020-07-22] MEDS: ISOSORBIDE MONO EXTENDED REL 60 MG TABCR PO SCH (08:22)
[2020-07-22] MEDS: PANTOprazole 40 MG TAB PO SCH (08:23)
[2020-07-22] MEDS ORDERED: APIXABAN 2.5 MG TAB PO SCH (09:00)
--- NOTE | 2020-07-22 17:58 | Discharge Summary ---
Date of Service July 22, 2020 Admission HPI Per Admitting Provider 89 yo male with history of chronic afib, hypertension, chronic pain, GERD who presents with worsening dysphagia over the past two months. All the history obtained from the patient. He says that two months ago he noticed that he was having a hard time swallowing, to his recollection this is the first time he had this issue. He required a pureed diet at [facility]. He describes taking a bite but he cannot get food to get to the back of his throat to swallow. He describes it as having to "slurp" or suck it down his throat. Explains that he will even use his hand to squeeze on his neck and help force food and liquids back. He feels like he is choking and coughing, has a difficult time coughing up fluids that he may aspirate. He denies any painful sensation when swallowing. There is no sensation of food getting stuck further down in his chest, all the issues seem to be in the throat and initiating a swallow. He also says his voice has changed, it is deeper, denies that it is hoarse. He has not had any weight loss and he continues to move his bowels so he is able to get in enough food to maintain his weight. There was no acute issue that triggered sending him to the ED, it was that it was not getting better. Lab work generally stable but BUN and Cr a little higher than normal. CT neck/soft tissues showed no masses, no lymphadenopathy, no foreign bodies, the study was without contrast. CXR showed mild pulmonary edema, no infiltrate. Principal Diagnosis dysphagia, globus sensation, speech recommends slippery diet Discharge Exam Patient appears stated age of 89 he is bradykinetic He is unlabored breathing cardiac exam is distant rate controlled irregular with a systolic murmur Pain is patient wishes to go back to his longterm Discharge Data Allergies Allergy/AdvReac Type Severity Reaction Status Date / Time simvastatin Allergy Mild PER Verified 07/20/20 06:52 RECORDS- PATIENT DENIES amiodarone Allergy Unknown PER Verified 07/20/20 06:52 RECORDS- PATIENT DENIES hydrochlorothiazide AdvReac bradycardia Verified 07/20/20 06:52 metoprolol AdvReac Unknown Verified 07/20/20 06:52 HMG-CoA-R Inhibitors Allergy Unknown PER Uncoded 07/20/20 06:52 RECORDS- PATIENT DENIES Consultations 07/20/20 08:03 ED Decision to Admit Stat 07/20/20 10:01 Consult Case Management - Discharge Planning Routine Ordered Studies 07/20/20 06:28 CT soft tissue neck wo con Urgent 07/20/20 13:24 MR brain wo/w con Routine Hospital Course (1) Dysphagia: ongoing for 2 months appears to be issue of transitioning food to back of throat and initiating swallow no pain, no weight loss he coughs a lot after trying to eat and drink, no pneumonia on CXR Ct soft tissue of neck IMPRESSION: 1. No radiopaque foreign bodies or fluid bolus identified within the pharynx. 2. No masses, lymphadenopathy or fluid collections identified on this noncontrast study. Did consult speech therapy to evaluate at the bedside no suspicion of aspiration, no need for video swallow suspect worsening esophageal dysmotility, recommend PPI slippery diet, alternate solids and liquids using gravy and other viscous liquids to help propel food bolus with swallowing motion HOB >30 degrees, upright and alert when eating, stay upright for 30 minutes after eating MRI brain IMPRESSION: No acute intracranial abnormality. Advanced atrophy and microvascular ischemic changes. 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, stage 3: Should continue to follow with wound care We will have wound care evaluate the patient before starting on antibiotics at time of discharge (4) PAD (peripheral artery disease): (5) Gastropathy: Protonix, follows with [facility] continues on proton pump acid suppression (6) Chronic kidney disease: Chronic kidney disease stage III (7) Afib: rates controlled, on Eliquis 2.5mg BID, (8) COPD (chronic obstructive pulmonary disease): (9) HTN (hypertension): Total Time Total Time Spent Total Time Spent (In Minutes): It required greater than 30 minutes to prepare this patient for discharge Discharge Plan Discharge Items Patient Disposition: Transfer Long Term Fac Reason For Visit: DYSPHAGIA Discharge Diagnosis: dysphagia Activity: Resume your previous activity Non-emergency contact: Primary Care Provider Call non-emergency contact if: you have any medication questions and your symptoms worsen Follow-up/Referrals: Joyce Zeng [Primary Care Provider] - Diet: Regular Diet Texture: Pureed (blended smooth) Diet Comment: pureed gravy on the side so he can use to make a slippery diet Addtl Attending Provider Instructions: pt is on a slippery diet and should have purreed foods but they should be loose and not like a paste, follow typical aspiration precutions this pt had great improvement with gravy added to meals to help allow for ease of swallowing Pending Studies at Discharge: No Stand-Alone Forms: My [facility] Skilled Items Patient informed of condition?: Yes DNR: Yes Discharge Level of Care: Acute rehab Communicable Disease: No Discharge Prognosis: Stable Lines: None Urinary Catheter: No Medications and DC Order Prescriptions: Continued Levy 7-7-1.5 gram powder in packet 1 ea PO BID 30 Days Qty: 60 RF: 6 acetaminophen 650 mg suppository 650 mg VA Q4 MDD 3000mg PRN (Reason: Fever) RF: 0 acetaminophen 325 mg tablet 650 mg PO Q4 MDD 3000mg PRN (Reason: Fever Or Pain) RF: 0 albuterol sulfate 2.5 mg /3 mL (0.083 %) solution for nebulization 2.5 mg INH Q6H PRN (Reason: sob/cough/wheeze) RF: 0 buspirone 5 mg tablet 5 mg PO BID RF: 0 bisacodyl [Dulcolax (bisacodyl)] 10 mg suppository 10 mg VA DAILY PRN (Reason: Constipation) RF: 0 apixaban [Eliquis] 2.5 mg tablet 2.5 mg PO BID RF: 0 escitalopram oxalate 10 mg tablet 15 mg PO QAM RF: 0 fentanyl 12 mcg/hr patch 72 hour 1 patch TD Q72H RF: 0 fluticasone propionate 50 mcg/actuation blister with device 2 inh inhalation QAM RF: 0 hydrocortisone [Anti-Itch (HC)] 1 % cream 1 appln TOP Q12 PRN (Reason: leg rash) RF: 0 isosorbide mononitrate 60 mg tablet extended release 24 hr 60 mg PO QAM RF: 0 magnesium hydroxide [Milk of Magnesia] 400 mg/5 mL suspension 30 ml PO DAILY PRN (Reason: Constipation) RF: 0 polyethylene glycol 3350 [Miralax] 17 gram/dose powder 17 gm PO QAM RF: 0 pantoprazole 40 mg tablet,delayed release (DR/EC) 40 mg PO DAILY RF: 0 tiotropium bromide [Spiriva Respimat] 2.5 mcg/actuation mist 2 puffs INH QAM RF: 0 tramadol 50 mg tablet 25 mg PO TID PRN (Reason: Pain) RF: 0 cholecalciferol (vitamin D3) 2,000 unit capsule 2,000 units PO QAM RF: 0 ondansetron HCl [Zofran] 4 mg tablet 4 mg PO Q8H PRN (Reason: Nausea) RF: 0 loperamide [Anti-Diarrheal (loperamide)] 2 mg capsule 2 mg PO Q4H PRN (Reason: diarrhea) RF: 0 silodosin [Rapaflo] 8 mg capsule 8 mg PO QPM RF: 0 tramadol 50 mg Tablet 25 mg PO TID RF: 0 sodium chloride [Saline Mist] 0.65 % Aerosol,[place] 1 spray INTRANASAL Q2H PRN (Reason: dryness) RF: 0 ascorbic acid (vitamin C) 500 mg Tablet 500 mg PO QAM RF: 0 selenium sulfide 2.25 % Shampoo 1 applic TOPICAL 2XWK RF: 0 Saccharomyces boulardii [Florastor] 250 mg Capsule 250 mg PO QAM RF: 0 ProSource 10-100 gram-kcal/30 mL Liquid 1 ea PO BID RF: 0 Discontinued cephalexin [Keflex] 500 mg Capsule 500 mg PO QID RF: 0 Discharge Orders: Discharge Order (Routine); Ordered 07/22/20 Ordered By: Renzo Mercer Admission Data Admit Date/Time: 07/21/20 10:47 Attending Provider: Renzo Mercer Admit Provider: Edil Muller Primary Care Provider: Joyce Zeng Other Providers: Edil Muller Other Interventions: Discharge Summary Assessment (RN) Last Done: 07/22/20 14:53 Coding Level of Care Code D/C Day Management >30 mins Diagnoses Dysphagia R13.10 Dysphagia type: unspecified Acute dehydration E86.0 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
== END 2020-07-22 15:28 ==
LOC: ED 06:00 → 2W 06:00 → SUATTDRO 07-21 10:47 → 3N 07-21 20:03
DX: Z87.891 Personal history of nicotine dependence; K21.9 Gastro-esophageal reflux disease without esophagitis; I48.91 Unspecified atrial fibrillation; Z79.01 Long term (current) use of anticoagulants; L89.893 Pressure ulcer of other site, stage 3; J44.9 Chronic obstructive pulmonary disease, unspecified; E86.0 Dehydration; F41.9 Anxiety disorder, unspecified; M19.90 Unspecified osteoarthritis, unspecified site; Z86.73 Personal history of transient ischemic attack (TIA), and cerebral infarction without residual deficits; Z79.899 Other long term (current) drug therapy; I12.9 Hypertensive chronic kidney disease with stage 1 through stage 4 chronic kidney disease, or unspecified chronic kidney disease; I73.9 Peripheral vascular disease, unspecified; R13.10 Dysphagia, unspecified; Z88.8 Allergy status to other drugs, medicaments and biological substances; N18.30 Chronic kidney disease, stage 3 unspecified